=== PATIENT | female | born 1945 | race Caucasian/White ===

== ENCOUNTER → 2017-08-31 14:23 | Outpatient (CLI) | payer OTHER, SELFPAY ==
--- NOTE | 2017-08-31 14:30 | RAD_ITS ---
STUDY: X-RAY - PELVIS REASON FOR EXAM: Female, 71 years old. Pain TECHNIQUE: One view of the pelvis was obtained. COMPARISON: None. FINDINGS: There is no evidence of fracture or dislocation. There are mild degenerative changes in the hips. There are no radiodense foreign bodies. RAD/Pelvis 1 or 2 Views IMPRESSION: No fracture or dislocation. 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 Electronically Signed: Jozef Rao, at 17:05 EDT Tel , Service support ,
[2017-08-31 15:51] LABS: Absolute Lymphocyte Count 2.09 X10^3/ul (0.83-4.51); Absolute Neutrophil Count 5.2 X10^3/uL (2.0-7.7); Basophil# 0.08 X10^3/uL; Basophil% 0.9 % (0-1); Eosinophil# 0.25 X10^3/uL; Eosinophils% 2.9 % (0-5); Hematocrit 36.1 % (37-47); Hemoglobin 11.5 g/dl (12.0-15.0); Lymphocyte # 2.09 X10^3/ul (4.0); Lymphocyte % 23.9 % (19-41); Mean Corp Hgb Conc 31.9 g/gl (32-36); Mean Corpuscular Hgb 27.8 pg (27.0-32.0); Mean Corpuscular Volume 87.4 fL (81-99); Monocyte# 0.97 X10^3/uL; Monocyte% 11.1 % (0-10); Neutrophil # 5.23 X10^3/uL (2.7-7.7); Neutrophil % 59.9 % (47-70); Platelet Count 364 K/mm3 (150-450); RBC Distribution Width CV 16.1 % (11.6-14.6); RBC Distribution Width SD 51.3 fl (35.1-43.9); Red Blood Count 4.13 M/mm3 (4.2-5.4); White Blood Count 8.7 K/mm3 (4.4-11.0)
[2017-08-31 15:56] LABS: POSITIVE COUNT NO; POSITIVE DIFFERENTIAL NO; POSITIVE MORPHOLOGY NO
[2017-08-31 16:08] LABS: Erythrocyte Sedimentation Rate 30 mm/hr (0-30)
[2017-08-31 18:08] LABS: ALB/GLOB Ratio 0.8 RATIO (0.9-2.4); AST(SGOT) 25 U/L (15-37); Alanine Aminotransfer ALT/SGPT 34 U/L (13-56); Albumin, Serum 3.4 g/dL (3.2-5.0); Alkaline Phosphatase 53 U/L (45-117); Anion Gap 9 (5-15); BUN 36 mg/dL (7-18); BUN/Creat Ratio 28.6 RATIO (10-20); CRP 5.25 mg/L (0.0-3.0); Calcium,Total 9.5 mg/dL (8.5-10.1); Chloride 104 mmol/L (98-107); Creatinine, Serum 1.26 mg/dL (0.55-1.02); EST Glomerular Filtration Rate 44 mL/min (>60); Est Glom Filt Rate - Afr Amer 54 mL/min (>60); Globulin 4.4 g/dL (2.2-4.2); Glucose 99 mg/dL (74-106); Protein, Total 7.8 g/dL (6.4-8.2); Rheumatoid Factor < 10.0 IU/mL (<15); Sodium Level 139 mmol/L (136-145)
[2017-09-02 14:07] LABS: SJOGREN'S Anti-SS-A test < 0.2 AI (0.0-0.9); SJOGREN'S Anti-SS-B test < 0.2 AI (0.0-0.9)
[2017-09-03 09:22] LABS: ANTINUCLEAR ANTIBODIES DIRECT Negative (Negative)
[2017-09-08 17:05] LABS: HEPATITIS B SURFACE AG Negative (Negative); Hep B Surface Antibodies Non Reactive (.)
[2017-09-08 17:06] LABS: CCP IgG Antibodies 3 units (0-19); HLA B27 Negative (.); Hep C Antibodies 0.1 s/co ratio (0.0-0.9)
== END ==
PROVIDERS: Family Provider Family Medicine; PCP Family Medicine; Visit Provider Internal Medicine Rheumatology
DX: M06.4 Inflammatory polyarthropathy (principal); I10 Essential (primary) hypertension; Z85.820 Personal history of malignant melanoma of skin
CPT/HCPCS: 36415; 72170; 80053; 81374; 85025; 85652; 86038; 86140; 86200; 86235; 86431; 86706; 86803; 87340

== ENCOUNTER → 2017-11-09 15:30 | Outpatient (CLI) | payer OTHER, SELFPAY ==
[2017-11-09 17:46] LABS: AST(SGOT) 16 U/L (15-37); Alanine Aminotransfer ALT/SGPT 28 U/L (13-56); Albumin, Serum 3.7 g/dL (3.2-5.0); Alkaline Phosphatase 45 U/L (45-117); Anion Gap 7 (5-15); BUN 31 mg/dL (7-18); BUN/Creat Ratio 26.1 RATIO (10-20); Calcium,Total 9.3 mg/dL (8.5-10.1); Chloride 104 mmol/L (98-107); Creatinine, Serum 1.19 mg/dL (0.55-1.02); EST Glomerular Filtration Rate 47 mL/min (>60); Est Glom Filt Rate - Afr Amer 57 mL/min (>60); Globulin 3.6 g/dL (2.2-4.2); Glucose 81 mg/dL (74-106); Potassium 4.1 mmol/L (3.5-5.1); Protein, Total 7.3 g/dL (6.4-8.2); Sodium Level 140 mmol/L (136-145)
[2017-11-09 17:51] LABS: Absolute Lymphocyte Count 1.55 X10^3/ul (0.83-4.51); Absolute Neutrophil Count 6.7 X10^3/uL (2.0-7.7); Basophil# 0.04 X10^3/uL; Basophil% 0.4 % (0-1); Hematocrit 41.1 % (37-47); Hemoglobin 13.2 g/dl (12.0-15.0); Lymphocyte # 1.55 X10^3/ul (4.0); Lymphocyte % 16.2 % (19-41); Mean Corp Hgb Conc 32.1 g/gl (32-36); Mean Corpuscular Hgb 28.7 pg (27.0-32.0); Mean Corpuscular Volume 89.3 fL (81-99); Mean Platelet Vol. 10.9 fl (6.2-12.0); Monocyte# 1.13 X10^3/uL; Monocyte% 11.8 % (0-10); Neutrophil # 6.68 X10^3/uL (2.7-7.7); Neutrophil % 69.8 % (47-70); Platelet Count 299 K/mm3 (150-450); RBC Distribution Width SD 48.9 fl (35.1-43.9); White Blood Count 9.6 K/mm3 (4.4-11.0)
[2017-11-09 17:52] LABS: POSITIVE COUNT NO; POSITIVE DIFFERENTIAL NO; POSITIVE MORPHOLOGY NO
== END ==
PROVIDERS: Family Provider Family Medicine; PCP Family Medicine; Referring Provider Internal Medicine Rheumatology; Visit Provider Internal Medicine Rheumatology
DX: M06.4 Inflammatory polyarthropathy (principal); I10 Essential (primary) hypertension; Z85.820 Personal history of malignant melanoma of skin
CPT/HCPCS: 36415; 80053; 85025

== ENCOUNTER → 2018-01-13 16:25 | Outpatient (CLI) | payer OTHER, SELFPAY ==
[2018-01-13 17:51] LABS: Absolute Lymphocyte Count 2.18 X10^3/ul (0.83-4.51); Absolute Neutrophil Count 5.2 X10^3/uL (2.0-7.7); Basophil# 0.04 X10^3/uL; Basophil% 0.5 % (0-1); Eosinophils% 1.2 % (0-5); Hematocrit 41.2 % (37-47); Hemoglobin 13.1 g/dl (12.0-15.0); Lymphocyte # 2.18 X10^3/ul (4.0); Lymphocyte % 25.6 % (19-41); Mean Corp Hgb Conc 31.8 g/gl (32-36); Mean Corpuscular Hgb 28.4 pg (27.0-32.0); Mean Corpuscular Volume 89.2 fL (81-99); Mean Platelet Vol. 11.5 fl (6.2-12.0); Monocyte# 0.92 X10^3/uL; Monocyte% 10.8 % (0-10); Neutrophil # 5.21 X10^3/uL (2.7-7.7); Neutrophil % 61.3 % (47-70); Platelet Count 279 K/mm3 (150-450); RBC Distribution Width CV 14.9 % (11.6-14.6); RBC Distribution Width SD 48.4 fl (35.1-43.9); Red Blood Count 4.62 M/mm3 (4.2-5.4); White Blood Count 8.5 K/mm3 (4.4-11.0)
[2018-01-13 17:52] LABS: ALB/GLOB Ratio 0.8 RATIO (0.9-2.4); AST(SGOT) 19 U/L (15-37); Alanine Aminotransfer ALT/SGPT 32 U/L (13-56); Albumin, Serum 3.4 g/dL (3.2-5.0); Alkaline Phosphatase 48 U/L (45-117); Anion Gap 8 (5-15); BUN 38 mg/dL (7-18); BUN/Creat Ratio 30.2 RATIO (10-20); Calcium,Total 9.4 mg/dL (8.5-10.1); Chloride 104 mmol/L (98-107); Creatinine, Serum 1.26 mg/dL (0.55-1.02); EST Glomerular Filtration Rate 44 mL/min (>60); Est Glom Filt Rate - Afr Amer 54 mL/min (>60); Glucose 103 mg/dL (74-106); Potassium 4.4 mmol/L (3.5-5.1); Protein, Total 7.4 g/dL (6.4-8.2); Sodium Level 140 mmol/L (136-145)
[2018-01-13 18:02] LABS: POSITIVE COUNT NO; POSITIVE DIFFERENTIAL NO; POSITIVE MORPHOLOGY NO
== END ==
PROVIDERS: Family Provider Family Medicine; PCP Family Medicine; Referring Provider Internal Medicine Rheumatology; Visit Provider Internal Medicine Rheumatology
DX: M06.4 Inflammatory polyarthropathy (principal); I10 Essential (primary) hypertension; Z85.820 Personal history of malignant melanoma of skin
CPT/HCPCS: 36415; 80053; 85025

== ENCOUNTER → 2018-01-20 17:58 | Outpatient (CLI) | payer OTHER, SELFPAY ==
[2018-01-20 18:00] LABS: Pathologist Comment May follow
[2018-01-20 18:33] LABS: RBC /Synovial Fluid 0.026 10^6/uL (0); Synovial Fld Mononuclear WBC % 71.3 %; Synovial Fld Polynuclear WBC # 0.073 10^3/ul; Synovial Fld Polynuclear WBC % 28.7 %
[2018-01-20 18:55] LABS: AUTO B FLUID DILUENT BKGD CT WBC <0.1 RBC <0.01 (W<.1,R<.01); CRYSTALS, BODY FLUID See PATH REV; Color / Synovial Fluid Red (Pale Yellow); Source / Synovial Fluid NG; Source- Body Fluid SYNOVIAL
[2018-01-20 18:56] LABS: Appearance /Synovial Fluid Sl Cl (CLEAR)
[2018-01-20 19:47] LABS: Lymph 34 %; Monocyte /Synovial Fluid 24 %; Neutrophil 42 % (0-25)
[2018-01-20 19:48] LABS: Body Fluid QC Type(s) BF1Q.BF2Q
[2018-01-23 13:57] LABS: Pathologist Review Reviewed
--- OUTSIDE RECORDS SUMMARY | 2018-04-26 07:32 | XMS RPT_ITS ---
:1945 Author Organization OHIP Care Team Providers Name Role Phone ILAN AGUILLON Admitting Unavailable ILAN AGUILLON Attending Unavailable ILAN AGUILLON Primary Care Unavailable ILAN AGUILLON Consulting Unavailable PROVIDER, UNKNOWN Consulting Unavailable PROVIDER, UNKNOWN Consulting Unavailable PROVIDER, UNKNOWN Consulting Unavailable ABRIL KELLEY DR Admitting Unavailable ABRIL KELLEY DR Attending Unavailable ABRIL KELLEY DR Primary Care Unavailable ILAN AGUILLON Consulting Unavailable PROVIDER, UNKNOWN Consulting Unavailable PROVIDER, UNKNOWN Consulting Unavailable PROVIDER, UNKNOWN Consulting Unavailable ABRIL KELLEY DR Admitting Unavailable ABRIL KELLEY DR Attending Unavailable ABRIL KELLEY DR Primary Care Unavailable ILAN AGUILLON Consulting Unavailable PROVIDER, UNKNOWN Consulting Unavailable PROVIDER, UNKNOWN Consulting Unavailable PROVIDER, UNKNOWN Consulting Unavailable ABRIL KELLEY DR Admitting Unavailable ABRIL KELLEY DR Attending Unavailable ABRIL KELLEY DR Primary Care Unavailable ILAN AGUILLON Consulting Unavailable PROVIDER, UNKNOWN Consulting Unavailable PROVIDER, UNKNOWN Consulting Unavailable PROVIDER, UNKNOWN Consulting Unavailable Vellanki, Jasmyne Attending Unavailable Pal, Ilan Primary Care Unavailable Vellanki, Jasmyne Referring Unavailable Mychak Alicia Attending Unavailable Mychak, Alicia Referring Unavailable Ilan Aguillon Primary Care Unavailable Vellanki, Jasmyne Attending Unavailable Vellanki, Jasmyne Referring Unavailable Pal, Ilan Primary Care Unavailable Vellanki, Jasmyne Attending Unavailable Vellanki, Jasmyne Referring Unavailable Ilan Aguillon Primary Care Unavailable Vellanki, Jasmyne Attending Unavailable Vellanki, Jasmyne Referring Unavailable Ilan Aguillon Primary Care Unavailable PROBLEMS PROBLEMS DATE TYPE CONDITION / CODE ATTENDING STATUS SOURCE 01/23/2018 Unknown 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[place], Active [place] polyarthropathy / [facility] M06.4(ICD-10) Hospital Repository 01/23/2018 Unknown I10 - Essential V[place]an[place]san, Active [place] (primary) [facility] hypertension / Hospital I10(ICD-10) Repository 01/23/2018 Unknown Z85.820 - Personal [place]an[place]san, Active [place] history of malignant [facility] melanoma of skin / Hospital Z85.820(ICD-10) Repository 07/11/2017 Principle Polyarthritis, ILAN AGUILLON Active [place] Diagnosis unspecified / [facility] M130(ICD-10) Hospital Repository 07/11/2017 Secondary Myalgia / ILAN AGUILLON Active [place] Diagnosis M791(ICD-10) [facility] Repository PROCEDURES PROCEDURES No Procedure Records FoundRESULTS RESULTS ARTERIAL Observed: 02/02/2018 Status: F Source: [place] 12:20 PM [facility] HOSPITAL REPOSITORY [facility] Cardiovascular Services [address] [place] [address] Lower Ext Art Exam w/o Exercis 02/02/18 1002 MR#: [id number] Acct: [id number] Name: MORGAN DINH #: [id number] : 1945 72 From: Asif Aparicio MD Attending Dr: Alicia Tong DPM Status: REG CLI Ordering Dr: Alicia Tong DPLiss Date: 02/02/18 Location: CVS Sex: F C Admitted: Reason For Study: PVD Left Segmental Pressures Left brachial= 149mmHg. Left posterior tibial artery = 163mmHg. Left dorsalis pedis artery = 160mmHg. Left digit = 90 mmHg. The left dorsalis pedis waveforms are triphasic. The left posterior tibial artery waveforms are triphasic. Right Segmental Pressures Right brachial= 142mmHg. Right posterior tibial artery = 156mmHg. Right dorsalis pedis artery = 161mmHg. Right digit = 100 mmHg. The right dorsalis pedis waveforms are triphasic. The right posterior tibial artery waveforms are triphasic. Indices The right ankle brachial index by the dorsalis pedis is 1.1. The right ankle brachial index by the posterior tibial artery is 1.1. The right digital-brachial index is .67. The left ankle brachial index by the dorsalis pedis is 1.1. The left ankle brachial index by the posterior tibial artery is 1.1. The left digital-brachial index is .60. Interpretation Summary Triphasic waveforms are noted at ankle level bilaterally. Resting ankle-brachial indices are normal bilaterally. Digital-brachial indices are mildly diminished bilaterally. Arterial flow appears to be normal to ankle level bilaterally. There appears to be mild impairment of arterial flow at digital level bilaterally. Clinical correlation is advised. Ordering Physician: Alicia Tong Referring Physician: Ilan Aguillon MD Performed By: Nettie Elizalde Nette 02/02/18 1219 Date Asif Aparicio MD CC: ANGELA Tong; Ilan Aguillon MD Date Dictated: 02/02/18 1002 Date Transcribed: 02/02/18 1219 Home Advisor: Signed LOWER EXT/NO JT/W/O Observed: 02/02/2018 Status: F Source: [place] 10:07 AM [facility] REPOSITORY [facility] Imaging Services [address] [place] [address] Lower Ext/No Jt/w/o MR#: [id number] Acct: [id number] Name: MORGAN DINH Rep #: [id number] : 1945 F 72 From: Thiago Dean MD PCP: Ilan Aguillon MD Status: REG CLI Study: Lower Ext/No Jt/w/o Date of Exam: 02/02/18 Exam# [id number] Ordering Dr: Alicia Tong DPM STUDY: MRI LEFT MIDFOOT REASON FOR EXAM: Female, 72 years old. TECHNIQUE: Standardized fat and water weighted pulse sequences were obtained in all 3 orthogonal planes. COMPARISON: None. 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 Normal first tarsometatarsal articulation. Normal Lisfranc ligament. Normal second and third tarsometatarsal articulations. Normal cuboid fourth and cuboid fifth tarsometatarsal articulation. Normal first through fifth metatarsi. Normal tibialis anterior tendon. Normal extensor hallucis longus tendon. Normal extensor digitorum longus tendons. Normal peroneus longus tendon and distal insertion. Normal peroneus brevis tendon and distal insertion. Normal intrinsic muscles of the mid and forefoot region. Normal extensor digitorum brevis muscle. Normal subcutis adipose space. MRI/Lower Ext/No Jt/w/o IMPRESSION: Arthrosis of the talonavicular, subtalar, navicular-cuneiform and cuneiform-metatarsal articulations. No other significant abnormality. Electronically Signed: Thiago Dean MD at 16:52 EST , Service support , CC: ANGELA Tong; Ilan Aguillon MD Home Advisor: Signed SYNOVIAL FLUID RBC, Collected: 01/20/2018 Status: C Source: [place] WBC AND DIFF 5:00 PM [facility] REPOSITORY TYPE CODE TESTS RESULT OUT OF RANGE REFERENCE UNITS LAB L200.5050 0.000-0.000 10 3 uL High SYN Tot 0.[address] Result Comment: This is the Total Number of Nucleated Cell Types in the Body Fluid. LAB L200.5100 0 10 6/uL High SYNOVIAL RBC 0.026 LAB L200.5200 0.000-0.002 10 3uL High SYNOVIAL WBC 0.2540 LAB L200.5260 % SYBF PMN Normal WBC% 28.7 LAB L200.5270 10 3/ul SYBF PMN Normal WBC# 0.073 LAB L200.5280 % SYBF MN Normal WBC% 71.3 LAB L200.5800 PATH Normal COM/SYFL May follow LAB L200.4600 SYNOVIAL Normal SOURCE NG LAB L200.4900 Pale Yellow SYNOVIAL Normal COLOR Red LAB L200.5000 CLEAR SYNOVIAL Normal CLYDE. Sl Cl LAB L200.5300 0-25 % High NEUTROPHIL 42 LAB L200.5400 % LYMPH Normal 34 LAB L200.5500 % MONO Normal 24 Performed By: #### L200.0400, L200.4175 #### [facility] [address] [place], [address] CRYSTALS, BODY FLUID Collected: 01/20/2018 Status: C Source: [place] 5:00 PM [facility] REPOSITORY TYPE CODE TESTS RESULT OUT OF RANGE REFERENCE UNITS LAB L200.4200 Normal See PATH REV CRYSTALS/BF LAB L200.4225 Normal SYNOVIAL SOURCE/BF LAB L200.6020 Normal PATH Reviewed REV Result Comment: Negative for malignant cells. Bloody specimen. Numerous nondescript crystals are noted. Jonatan Mittal M.D. 01/23/18 AMENDED REPORT 01/23/18 1356 PATH REV previously reported as: Will follow Performed By: #### L200.0400, L200.4175 #### [facility] [address] [facility] [place], [address] Observed: 01/20/2018 Status: F Source: [place] CULTURE, BODY FLUID 5:00 PM [facility] REPOSITORY List Antibiotics Last 48 Hours? N List Antibiotics to be Started? N Gram Stain Gram Stain 4+ Red Blood Cells 1+ White Blood Cells No organisms seen Body Fluid Cult No growth in 5 days. Cult, Anaerobic No growth in 5 days. Performed By: #### M100.1300 #### [facility] [address] [facility] [place], [address] COMPREHENSIVE METABOLIC Collected: 01/13/2018 Status: F Source: [place] PROFIL 4:27 PM [facility] REPOSITORY TYPE CODE TESTS RESULT OUT OF RANGE REFERENCE UNITS LAB L501.0100 74-106 mg/dL Normal GLU 103 Result Comment: Fasting Glucose result from 100 to 125 mg/dL suggests IMPAIRED HOMEOSTASIS per A.D.A. criteria. Please note revised GLUCOSE reference range effective 2017. LAB L501.1000 7-18 mg/dL High BUN 38 LAB L501.1100 0.55-1.02 mg/dL High CREAT,SERUM 1.26 Result Comment: The validity of the calculated GFR AND GFRAA in patients over 70 years has not been determined. Clinical correlation is essential. LAB L501.1110 >60 mL/min Low EST GFR 44 Result Comment: Non- GFR Calc LAB L501.1115 >60 mL/min Low EST GFR - AA 54 Result Comment: GFR Calc LAB L501.1300 10-20 RATIO High BUN/CRE 30.2 LAB L501.1500 6.4-8.2 g/dL T Normal PROT 7.4 LAB L501.1800 3.2-5.0 g/dL Normal ALB 3.4 LAB L501.1950 2.2-4.2 g/dL Normal GLOB 4.0 LAB L501.2000 0.9-2.4 RATIO Low A/G 0.8 LAB L501.2200 8.5-10.1 mg/dL CA Normal 9.4 LAB L501.4100 15-37 U/L Normal AST 19 Result Comment: Slight Hemolysis, Result may be falsely increased. LAB L501.4305 45-117 U/L Normal ALK P 48 LAB L501.4405 13-56 U/L Normal ALT 32 LAB L501.4600 0.20-1.00 mg/dL Normal T BILI 0.30 LAB L501.5300 136-145 mmol/L Normal NA 140 LAB L501.5600 3.5-5.1 mmol/L Normal K 4.4 Result Comment: Slight Hemolysis, Result may be falsely increased. LAB L501.5900 98-107 mmol/L Normal CL 104 LAB L501.6100 21.0-32.0 mmol/L Normal CO2 28.0 LAB L501.6200 5-15 Normal 8 GAP Performed By: #### L500.4050 #### [facility] [address] [place], [address] CBC W/DIFF, AUTOMATED Collected: 01/13/2018 Status: F Source: [place] 4:27 PM [facility] REPOSITORY TYPE CODE TESTS RESULT OUT OF RANGE REFERENCE UNITS LAB L100.1000 4.4-11.0 K/mm3 Normal WBC 8.5 LAB L100.1200 4.2-5.4 M/mm3 Normal RBC 4.62 LAB L100.1300 12.0-15.0 g/dl Normal HGB 13.1 LAB L100.1400 37-47 % Normal HCT 41.2 LAB L100.1500 81-99 fL Normal MCV 89.2 LAB L100.1600 27.0-32.0 pg Normal MCH 28.4 LAB L100.1700 32-36 g/gl Low MCHC 31.8 LAB L100.1810 11.6-14.6 % High RDW CV 14.9 LAB L100.1820 35.1-43.9 fl High RDW SD 48.4 LAB L100.1900 150-450 K/mm3 Normal PLT 279 LAB L100.2000 6.2-12.0 fl Normal MPV 11.5 LAB L100.2100 47-70 % Normal NEUT% 61.3 LAB L100.2200 19-41 % Normal LY% 25.6 LAB L100.2300 0-10 % High MONO% 10.8 LAB L100.2400 0-5 % Normal EO% 1.2 LAB L100.2500 0-1 % Normal BASO% 0.5 LAB L100.2550 0.0-0.9 % Normal IM GRAN % 0.600 Result Comment: IG% - Immature Granulocytes (promyelocytes, myelocytes and metamyelocytes) > 1% indicates that a LEFT SHIFT is Present. LAB L100.2620 2.0-7.7 X10 3/uL Normal Absolute Neut 5.2 LAB L100.2720 0.83-4.51 X10 3/ul Normal Absolute Lymph 2.18 Performed By: #### L100.0100 #### [facility] [address] [place], [address] COMPREHENSIVE METABOLIC Collected: 11/09/2017 Status: F Source: [facility] 3:36 PM [facility] REPOSITORY TYPE CODE TESTS RESULT OUT OF RANGE REFERENCE UNITS LAB L501.0100 74-106 mg/dL Normal GLU 81 Result Comment: Please note revised GLUCOSE reference range effective 2017. LAB L501.1000 7-18 mg/dL High BUN 31 LAB L501.1100 0.55-1.02 mg/dL High CREAT,SERUM 1.19 Result Comment: The validity of the calculated GFR AND GFRAA in patients over 70 years has not been determined. Clinical correlation is essential. LAB L501.1110 >60 mL/min Low EST GFR 47 Result Comment: Non- GFR Calc LAB L501.1115 >60 mL/min Low EST GFR - AA 57 Result Comment: GFR Calc LAB L501.1300 10-20 RATIO High BUN/CRE 26.1 LAB L501.1500 6.4-8.2 g/dL T Normal PROT 7.3 LAB L501.1800 3.2-5.0 g/dL Normal ALB 3.7 LAB L501.1950 2.2-4.2 g/dL Normal GLOB 3.6 LAB L501.2000 0.9-2.4 RATIO Normal A/G 1.0 LAB L501.2200 8.5-10.1 mg/dL CA Normal 9.3 LAB L501.4100 15-37 U/L Normal AST 16 LAB L501.4305 45-117 U/L Normal ALK P 45 LAB L501.4405 13-56 U/L Normal ALT 28 LAB L501.4600 0.20-1.00 mg/dL T Normal BILI 0.30 LAB L501.5300 136-145 mmol/L NA Normal 140 LAB L501.5600 3.5-5.1 mmol/L K Normal 4.1 LAB L501.5900 98-107 mmol/L CL Normal 104 LAB L501.6100 21.0-32.0 mmol/L Normal CO2 29.0 LAB L501.6200 5-15 Normal GAP 7 Performed By: #### L500.4050 #### [facility] [address] [place], [address] CBC W/DIFF, AUTOMATED Collected: 11/09/2017 Status: F Source: [place] 3:36 PM [facility] REPOSITORY TYPE CODE TESTS RESULT OUT OF RANGE REFERENCE UNITS LAB L100.1000 4.4-11.0 K/mm3 Normal WBC 9.6 LAB L100.1200 4.2-5.4 M/mm3 Normal RBC 4.60 LAB L100.1300 12.0-15.0 g/dl Normal HGB 13.2 LAB L100.1400 37-47 % Normal HCT 41.1 LAB L100.1500 81-99 fL Normal MCV 89.3 LAB L100.1600 27.0-32.0 pg Normal MCH 28.7 LAB L100.1700 32-36 g/gl Normal MCHC 32.1 LAB L100.1810 11.6-14.6 % High RDW CV 15.0 LAB L100.1820 35.1-43.9 fl High RDW SD 48.9 LAB L100.1900 150-450 K/mm3 Normal PLT 299 LAB L100.2000 6.2-12.0 fl Normal MPV 10.9 LAB L100.2100 47-70 % Normal NEUT% 69.8 LAB L100.2200 19-41 % Low LY% 16.2 LAB L100.2300 0-10 % High MONO% 11.8 LAB L100.2400 0-5 % Normal EO% 1.0 LAB L100.2500 0-1 % Normal BASO% 0.4 LAB L100.2550 0.0-0.9 % Normal IM GRAN % 0.800 Result Comment: IG% - Immature Granulocytes (promyelocytes, myelocytes and metamyelocytes) > 1% indicates that a LEFT SHIFT is Present. LAB L100.2620 2.0-7.7 X10 3/uL Normal Absolute Neut 6.7 LAB L100.2720 0.83-4.51 X10 3/ul Normal Absolute Lymph 1.55 Performed By: #### L100.0100 #### [facility] [address] [place], [place], [address] CBC W/DIFF, AUTOMATED Collected: 08/31/2017 Status: F Source: [place] 2:31 PM [facility] REPOSITORY TYPE CODE TESTS RESULT OUT OF RANGE REFERENCE UNITS LAB L100.1000 4.4-11.0 K/mm3 Normal WBC 8.7 LAB L100.1200 4.2-5.4 M/mm3 Low RBC 4.13 LAB L100.1300 12.0-15.0 g/dl Low HGB 11.5 LAB L100.1400 37-47 % Low HCT 36.1 LAB L100.1500 81-99 fL Normal MCV 87.4 LAB L100.1600 27.0-32.0 pg Normal MCH 27.8 LAB L100.1700 32-36 g/gl Low MCHC 31.9 LAB L100.1810 11.6-14.6 % High RDW CV 16.1 LAB L100.1820 35.1-43.9 fl High RDW SD 51.3 LAB L100.1900 150-450 K/mm3 Normal PLT 364 LAB L100.2000 6.2-12.0 fl Normal MPV 11.0 LAB L100.2100 47-70 % Normal NEUT% 59.9 LAB L100.2200 19-41 % Normal LY% 23.9 LAB L100.2300 0-10 % High MONO% 11.1 LAB L100.2400 0-5 % Normal EO% 2.9 LAB L100.2500 0-1 % Normal BASO% 0.9 LAB L100.2550 0.0-0.9 % High IM GRAN % 1.300 Result Comment: IG% - Immature Granulocytes (promyelocytes, myelocytes and metamyelocytes) > 1% indicates that a LEFT SHIFT is Present. LAB L100.2620 2.0-7.7 X10 3/uL Normal Absolute Neut 5.2 LAB L100.2720 0.83-4.51 X10 3/ul Normal Absolute Lymph 2.09 Performed By: #### L100.0100, L101.9900 #### [facility] [address] [facility] [place], [place], [address] ERYTHROCYTE SED RATE Collected: 08/31/2017 Status: F Source: [place] 2:31 PM [facility] REPOSITORY TYPE CODE TESTS RESULT OUT OF RANGE REFERENCE UNITS LAB L102.0000 0-30 mm/hr Normal SED RATE 30 Performed By: #### L100.0100, L101.9900 #### [facility] [address] [place], [place], [address] COMPREHENSIVE METABOLIC Collected: 08/31/2017 Status: F Source: [facility] 2:31 PM [facility] REPOSITORY TYPE CODE TESTS RESULT OUT OF RANGE REFERENCE UNITS LAB L501.0100 74-106 mg/dL Normal GLU 99 Result Comment: Please note revised GLUCOSE reference range effective 2017. LAB L501.1000 7-18 mg/dL High BUN 36 LAB L501.1100 0.55-1.02 mg/dL High CREAT,SERUM 1.26 Result Comment: The validity of the calculated GFR AND GFRAA in patients over 70 years has not been determined. Clinical correlation is essential. LAB L501.1110 >60 mL/min Low EST GFR 44 Result Comment: Non- GFR Calc LAB L501.1115 >60 mL/min Low EST GFR - AA 54 Result Comment: GFR Calc LAB L501.1300 10-20 RATIO High BUN/CRE 28.6 LAB L501.1500 6.4-8.2 g/dL T Normal PROT 7.8 LAB L501.1800 3.2-5.0 g/dL Normal ALB 3.4 LAB L501.1950 2.2-4.2 g/dL High GLOB 4.4 LAB L501.2000 0.9-2.4 RATIO Low A/G 0.8 LAB L501.2200 8.5-10.1 mg/dL CA Normal 9.5 LAB L501.4100 15-37 U/L Normal AST 25 Result Comment: Slight Hemolysis, Result may be falsely increased. LAB L501.4305 45-117 U/L Normal ALK P 53 LAB L501.4405 13-56 U/L Normal ALT 34 LAB L501.4600 0.20-1.00 mg/dL Normal T BILI 0.30 LAB L501.5300 136-145 mmol/L Normal NA 139 LAB L501.5600 3.5-5.1 mmol/L Normal K 4.0 Result Comment: Slight Hemolysis, Result may be falsely increased. LAB L501.5900 98-107 mmol/L Normal CL 104 LAB L501.6100 21.0-32.0 mmol/L Normal CO2 26.0 LAB L501.6200 5-15 Normal 9 GAP Performed By: #### L500.4050, L501.6710, L505.7010 #### [facility] [address] [facility]. [facility] [address] CRP Collected: 08/31/2017 Status: F Source: [place] 2:31 [facility] REPOSITORY TYPE CODE TESTS RESULT OUT OF RANGE REFERENCE UNITS LAB L501.6710 0.0-3.0 mg/L High 5.25 C-REACTIVE PROT Result Comment: C-Reactive Protein (CRP) provides useful information for the diagnosis, therapy and monitoring of inflammatory processes and associated diseases. For the evaluation of Relative Risk for Cardiovascular Disease, a High Sensitivity CRP (HSCRP) should be ordered. Performed By: #### L500.4050, L501.6710, L505.7010 #### [facility] [address] [facility] [place], [place], [id number] RHEUMATOID FACTOR Collected: 08/31/2017 Status: F Source: [place] 2:31 PM [facility] REPOSITORY TYPE CODE TESTS RESULT OUT OF RANGE REFERENCE UNITS LAB L505.7010 <15 IU/mL Normal RHEUMATOID FAC < 10.0 Performed By: #### L500.4050, L501.6710, L505.7010 #### [facility] [address] [facility] [place], [address] ANTINUCLEAR ANTIBODIES Collected: 08/31/2017 Status: F Source: [place] DIRECT 2:31 PM [facility] REPOSITORY TYPE CODE TESTS RESULT OUT OF RANGE REFERENCE UNITS LAB L3100.5475 Negative Normal Negative SULAIMAN-DIRECT Result Comment: Performed at: [address] [id number] Rubberizing Mechanic: Armando Truner PhD, Phone: [phone] Performed By: #### L3100.5475, L3100.9100 #### [facility] (refer to report for specific site) refer to report for address and phone number SJOGREN'S ANTIBODIES Collected: 08/31/2017 Status: F Source: [place] A/B 2:31 PM [facility] REPOSITORY TYPE CODE TESTS RESULT OUT OF RANGE REFERENCE UNITS LAB L3100.9200 0.0-0.9 AI Normal Anti-SS-A < 0.2 LAB L3100.9300 0.0-0.9 AI Normal Anti-SS-B < 0.2 Performed By: #### L3100.5475, L3100.9100 #### [facility] (refer to report for specific site) refer to report for address and phone number HEPATITIS B SURFACE Collected: 08/31/2017 Status: F Source: [place] AG 2:31 PM [facility] REPOSITORY TYPE CODE TESTS RESULT OUT OF RANGE REFERENCE UNITS LAB L3100.0400 Negative Normal HB Negative SURF AG Result Comment: Performed at: [address] [id number] Rubberizing Mechanic: Armando Turner PhD, Phone: [phone] Performed at: 2 - [address] [id number] Rubberizing Mechanic: Raymon Rodriguez PhD, Phone: [phone] Performed at: - [address] [id number] Rubberizing Mechanic: Marshall Davila MD, Phone: [phone] Performed By: #### L3100.0390, L3100.0528, L3100.0625, L3410.1400, L4600.0100 #### [facility] (refer to report for specific site) refer to report for address and phone number HEP B SURFACE Collected: 08/31/2017 Status: F Source: [place] ANTIBODIES 2:31 PM [facility] REPOSITORY TYPE CODE TESTS RESULT OUT OF RANGE REFERENCE UNITS LAB L3100.0528 . Normal Hep B Non Reactive Patrick AB Result Comment: Non Reactive: Inconsistent with immunity, less than 10 mIU/mL Reactive: Consistent with immunity, greater than 9.9 mIU/mL Performed By: #### L3100.0390, L3100.0528, L3100.0625, L3410.1400, L4600.0100 #### [facility] (refer to report for specific site) refer to report for address and phone number HEPATITIS C ANTIBODIES Collected: 08/31/2017 Status: F Source: [place] 2:31 PM [facility] REPOSITORY TYPE CODE TESTS RESULT OUT OF RANGE REFERENCE UNITS LAB L3100.0650 0.0-0.9 s/co ratio Normal HEP C AB 0.1 Result Comment: Negative: < 0.8 Indeterminate: 0.8 - 0.9 Positive: > 0.9 The CDC recommends that a positive HCV antibody result be followed up with a HCV Nucleic Acid Amplification test (500127). Performed By: #### L3100.0390, L3100.0528, L3100.0625, L3410.1400, L4600.0100 #### [facility] (refer to report for specific site) refer to report for address and phone number HLA B27 Collected: 08/31/2017 Status: F Source: [place] 2:31 PM [facility] REPOSITORY TYPE CODE TESTS RESULT OUT OF RANGE REFERENCE UNITS LAB L3410.1500 . Normal HLA Negative B27 Result Comment: HLA-B*27 Negative B27 allele interpretation for all loci based on IMGT/HLA database version 3.27 This test was developed and its performance characteristics determined by [facility]. It has not been cleared or approved by the Food and Drug Administration. [facility] CLIA ID Number [id number] This test was performed using PCR (Polymerase Chain Reaction)/SSOP (Sequence Specific Oligonucleotide Probes) technique. SBT (Sequence Based Typing) and/or SSP (Sequence Specific Primers) may be used as supplemental methods when necessary. Please contact [facility] Customer Service at if you have any questions. Director of [facility] Laboratory Dr Raymon Rodriguez, PhD Performed By: #### L3100.0390, L3100.0528, L3100.0625, L3410.1400, L4600.0100 #### [facility] (refer to report for specific site) refer to report for address and phone number CCP IGG ANTIBODIES Collected: 08/31/2017 Status: F Source: [place] 2:31 PM [facility] REPOSITORY TYPE CODE TESTS RESULT OUT OF RANGE REFERENCE UNITS LAB L4600.0100 0-19 units Normal ANTI-CCP 3 [id number] Result Comment: Negative <20 Weak positive 20 - 39 Moderate positive 40 - 59 Strong positive >59 Performed By: #### L3100.0390, L3100.0528, L3100.0625, L3410.1400, L4600.0100 #### [facility] (refer to report for specific site) refer to report for address and phone number PELVIS 1 OR 2 VIEWS Observed: 08/31/2017 Status: F Source: [place] 2:30 PM [facility] REPOSITORY [facility] Imaging Services [address] [place] [address] Pelvis 1 or 2 Views MR#: [id number] Acct: [id number] Name: MORGAN DINH Rep #: [id number] : 1945 F 71 From: Jozef Rao MD PCP: Ilan Aguillon Status: REG CLI Study: Pelvis 1 or 2 Views Date of Exam: 08/31/17 Exam# [id number] Ordering Dr: Jasmyne Galan MD STUDY: X-RAY - PELVIS REASON FOR EXAM: Female, 71 years old. Pain TECHNIQUE: One view of the pelvis was obtained. COMPARISON: None. FINDINGS: There is no evidence of fracture or dislocation. There are mild degenerative changes in the hips. There are no radiodense foreign bodies. RAD/Pelvis 1 or 2 Views IMPRESSION: No fracture or dislocation. 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 Electronically Signed: Jozef Rao, at 17:05 EDT Tel , Service support , CC: Jasmyne Galan MD; Ilan Aguillon Home Advisor: Signed MR SHOULDER W/O RT Observed: 07/21/2017 Status: F [facility] [place] [address] Patient: MORGAN DINH Phone#: : [phone] Age: 71 Gender: F Pt. Type: Out Account: [id number] Location: [facility] Ordering: ABRIL KELLEY Exam Date: 07/21/2017/17:29 Family Phys: ILAN AGUILLON Charge Code: [id number] Physician: Roberts Order #: [id number] DLP Dose#: PROCEDURE: MRI SHOULDER RT WITHOUT CONTRAST COMPARISON: None. INDICATIONS: Pain and limited range of motion TECHNIQUE: A variety of imaging planes and parameters were utilized for visualization of suspected pathology. Images were performed without contrast. FINDINGS: ROTATOR CUFF REGION CUFF TENDONS: The supraspinatus tendon is abnormal in signal and thickened consistent with tendinosis. There is also a focus of bright signal at the articular attachment consistent with tear. The subscapularis tendon is thickened and mildly abnormal in signal consistent with tendinosis. CUFF MUSCLES: Normal appearing muscles. DELTOID: Normal. No significant atrophy or tear. LONG BICEPS TENDON: No abnormal signal, attrition, or tear. There is fluid present in the tendon sheath. LABRUM/BICEPS ANCHOR SUPERIOR: There is degeneration of the superior labrum. ANTERIOR/INFERIOR: There is degeneration of the anterior/inferior labrum. POSTERIOR: Normal. No posterior labrum abnormality. CAPSULE ANTERIOR/INFERIOR: Normal. No visible capsular laxity or thickening. Type I origin of the middle glenohumeral ligament. POSTERIOR: Normal. No visible capsular laxity or thickening. AC JOINT REGION AC JOINT: Degenerative changes are present at the acromioclavicular joint. AC LIGAMENTS: Normal acromioclavicular ligament. CC LIGAMENTS: Normal coracoclavicular ligaments. ACROMION: Normal horizontal (Type I) configuration. SUBACROMIAL BURSA: A small amount of fluid is present in the subacromial bursa. Continued Report - Page 2 of 2 Patient: MORGAN DINH Phone#: : 1945 Age: 71 Gender: F Pt. Type: Out Account: [id number] Location: 052 Ordering: ABRIL KELLEY Exam Date: 07/21/2017/17:29 Family Phys: ILAN AGUILLON Charge Code: 462986 Physician: Roberts Order #: [id number] DLP Dose#: HYALINE CARTILAGE: There is thinning of the articular cartilage. There is narrowing of the anterior glenohumeral joint. OTHER BONES: There is narrowing of the glenohumeral joint. OTHER OBSERVATIONS: A 7 mm focus of diminished signal is present lateral to the humeral head consistent with bursal calcification. CONCLUSION: 1. Degeneration of the articular cartilage is present. There is narrowing of the anterior glenohumeral joint space. There is degeneration of the superior and anterior labrum. 2. There is thickening and abnormal signal in the supraspinatus tendon consistent with tendinosis. There is small articular surface attachment tear. 3. There is tendinosis of the subscapularis tendon. 4. Degenerative changes at the acromioclavicular joint are present. Dictated by: Raquel Carr MD on 07/22/2017 at 16:09 Approved by: Raquel Carr MD on 07/22/2017 at 16:09 CBC Collected: 07/11/2017 Status: F Source: [facility] 3:02 PM [facility] REPOSITORY TYPE CODE TESTS RESULT OUT OF RANGE REFERENCE UNITS LAB CBC(LOINC) CBC Result Comment: CBC-COMPLETE BLOOD COUNT LAB WBC(LOINC) 4.5 - 10.8 x 10EE3/UL WBC 9.0 LAB RBC(LOINC) 4.10 - x 10EE6/UL 5.30 RBC 4.55 LAB HEMOGLOBIN(LOINC 12.0 - g/dl ) 16.0 HEMOGLOBIN 12.9 LAB HEMATOCRIT(LOINC 34.0 - % ) 46.0 HEMATOCRIT 36.7 LAB MCV(LOINC) 80 - 99 fl MCV 81 LAB MCH(LOINC) 27 - 33 pg MCH 28 LAB MCHC(LOINC) 32 - 36 X10 3 MCHC 35 LAB RDW/CV(LOINC) 12.0 - % 15.6 RDW/CV High 15.7 LAB PLATELET(LOINC) 150 - 450 x10EE3/UL PLATELET 376 LAB MPV(LOINC) 6.6 - 10.5 fl MPV 9.7 Result Comment: AUTOMATED DIFFERENTIAL LAB NEUT %(LOINC) 46.0 - 76.0 % NEUT % 60.2 LAB LYMPH %(LOINC) 20.0 - 45.0 % LYMPH % 25.4 LAB MONOS %(LOINC) 0.0 - 10.0 % MONOS % 9.0 LAB EO %(LOINC) 0.0 - 7.0 % EO % 4.2 LAB BASO %(LOINC) 0.0 - 2.0 % BASO % 1.2 LAB Lymph #(LOINC) 0.80 - 2.80 x10EE3/U L Lymph # 2.30 LAB Neut #(LOINC) 1.50 - 7.10 x10EE3/U L Neut # 5.40 LAB [place] #(LOINC) 0.20 - 1.00 x10EE3/U L [place] # 0.80 LAB EO #(LOINC) 0.00 - 0.50 x10EE3/U L EO # 0.40 LAB Baso #(LOINC) 0.00 - 0.10 x10EE3/U L Baso # 0.10 LAB MANUAL DIFF(LOINC) MANUAL DIFF N/A LAB MORPHOLOGY(LOINC ) MORPHOLOGY N/A Result Comment: {CD] Performed By: #### [id number] #### [facility],[address] [place] [address] VITAMIN D, 25 Collected: 07/11/2017 Status: F Source: [facility] 3:02 PM [facility] REPOSITORY TYPE CODE TESTS RESULT OUT OF RANGE REFERENCE UNITS LAB VitD(LOINC) 30.00 - 100 ng/mL VitD 34.21 Result Comment: 25-OHD3 indicates both endogenous production and supplementation. 25-OHD2 is an indicator of exogenous sources, such as diet or supplementation. Therapy is based on measurement of Total 25-OHD, with levels <20 ng/mL indicative of Vitamin D deficiency, while levels between 20 ng/mL and 30 ng/mL suggest insufficiency. Optimal levels are >=30ng/mL. Vitamin D, 25-OH D3 Not Established Vitamin D, 25-OH D2 Not Established Performed By: #### [id number] #### [facility],[address] [place] [address]87 CMP WITH EGFR Collected: 07/11/2017 Status: F Source: [facility] 3:02 PM [facility] REPOSITORY TYPE CODE TESTS RESULT OUT OF RANGE REFERENCE UNITS LAB CMP with eGFR(LOINC) CMP with eGFR Result Comment: COMPREHENSIVE METABOLIC PANEL LAB SODIUM(LOINC) 136 - 145 mmol/l SODIUM Low 134 LAB POTASSIUM(LOINC) 3.5 - 5.1 mmol/L POTASSIUM 4.3 LAB CHLORIDE(LOINC) 98 - 107 mmol/L CHLORIDE 107 LAB CO2(LOINC) 21.0 - mmol/L 31.0 CO2 25.5 LAB GLUCOSE(LOINC) 74 - 106 mg/dl GLUCOSE 89 LAB BUN(LOINC) 6 - 20 mg/dl BUN High 32 LAB CREATININE(LOINC) 0.6 - 1.2 mg/dl CREATININE 1.1 LAB AST/SGOT(LOINC) 13 - 39 U/L AST/SGOT 19 LAB ALK PHOS(LOINC) 38 - 126 U/L ALK PHOS 89 LAB CALCIUM(LOINC) 8.6 - mg/dl 10.2 CALCIUM 9.8 LAB TOTAL 6.4 - 8.3 g/dl PROTEIN(LOINC) TOTAL PROTEIN 7.1 LAB ALBUMIN(LOINC) 3.4 - 4.8 g/dL ALBUMIN 4.2 LAB GLOBULIN(LOINC) 1.5 - 3.8 G/DL GLOBULIN 2.9 LAB A/G RATIO(LOINC) 0.9 - 1.6 A/G RATIO 1.4 LAB TOTAL BILI(LOINC) 0.0 - 1.5 mg/dl TOTAL BILI 0.6 LAB B/C RATIO(LOINC) 0 - 30 ratio B/C RATIO 29 LAB ALT/SGPT(LOINC) 8 - 35 U/L ALT/SGPT 24 LAB ANION GAP(LOINC) 10 - 20 mmol/L ANION Low GAP 6 LAB AGE(LOINC) years AGE 71 LAB eGFR(LOINC) 60 - 999 ML/MINUTE eGFR Low 49 LAB eGFR(AA)(LOINC) 60 - 999 ML/MINUTE eGFR(AA) Low 59 Result Comment: ACCORDING TO THE NATIONAL KIDNEY DISEASE EDUCATION PROGRAM(NKDE), A NORMAL eGFR IS A VALUE GREATER THAN OR EQUAL TO 60 ML/MIN/1.73 SQ METERS. CHRONIC KIDNEY DISEASE: <60mL/MIN/1.73 SQ METERS KIDNEY FAILURE: <15mL/MIN/1.73 SQ METERS THIS TEST SHOULD ONLY BE USED FOR PATIENTS 18 YEARS OF AGE AND OLDER. Performed By: #### [id number] #### [facility],[address] [place] [address] TSH Collected: 07/11/2017 Status: F Source: [facility] 3:02 PM [facility] REPOSITORY TYPE CODE TESTS RESULT OUT OF RANGE REFERENCE UNITS LAB TSH(LOINC) 0.34 - 5.60 uIU/ml TSH 1.60 Performed By: #### [id number] #### [facility],[address] [place] [address] SEDRATE Collected: 07/11/2017 Status: F Source: [facility] 3:02 PM [facility] REPOSITORY TYPE CODE TESTS RESULT OUT OF REFERENCE UNITS RANGE LAB SEDRATE(RHETT 0 - 30 mm/hr NC) High SEDRATE 55 Performed By: #### [id number] #### [facility],[address] [place] [address] RHEUMATOID FACTOR Collected: 07/11/2017 Status: F Source: [facility] [QUEST] 3:02 [facility] REPOSITORY TYPE CODE TESTS RESULT OUT OF REFERENCE UNITS RANGE LAB RHEUMATOID FACTOR [QUEST](LOINC) RHEUMATOID FACTOR [QUEST] Result Comment: _RHEUMATOID FACTOR_ RHEUMATOID FACTOR Reported: 07/14/2017 21:37 Status=F TEST RESULT FLAG RANGE UNITS RHEUMATOID FACTOR <14 <14 IU/mL 07/14/17.2150.rfl.COMPLETE.AMRR .57357-2 Test Performed by [facility], [facility], [address] [place] [address] Richard Gage M.D., Ph.D., Director of Laboratories , CLIA [id number] Performed By: #### [id number] #### [facility],[address] [place], [place] [address] SULAIMAN TITER & PATTERN Collected: 07/11/2017 Status: F Source: [facility] [[facility]] 3:02 PM [facility] REPOSITORY TYPE CODE TESTS RESULT OUT OF REFERENCE UNITS RANGE LAB SULAIMAN TITER & PATTERN [QUEST](LOINC ) SULAIMAN TITER & PATTERN [QUEST] Result Comment: _ANA TITER AND PATTERN_ *SEE SEPARATE REPORT* TESTING PERFORMED AT: [facility] [address] [place] [address] [employer] PHONE # [phone] Performed By: #### [id number] #### [facility],[address] [place], [place] [id number] ALLERGIES ALLERGIES DATE TYPE / CODE NAME / CODE REACTION SEVERITY SOURCE 01/18/2016 Drug No Known Unknown [facility] Allergy/4160 Allergies/F00 [facility] [address]655(SNOMED 3399615(RXNOR Repository CT) M) Drug AVELOX/172061 Moderate Darriusjory Velasquezcalliut Allergy/4160 96(RXNORM) (Severity [facility] 66436(SNOMED Modifier) Repository CT) (Qualifier Value) ENCOUNTERS ENCOUNTERS ADMIT/DISCHARGE ACCOUNT ADMITTING ENCOUNTER LOCATION SOURCE NUMBER CLASS 02/03/2018 [id number] Tre KELLEY [facility] Repository 02/02/2018 [id number] Ambulatory [place] Anupam 9 [facility] ing:[facility] Repository 01/20/2018 [id number] Ambulatory Anupam [place] 1 [facility] ing:[facility]SPEC Repository 01/13/2018 [id number] [place] 2 [facility] ing:MTLAB Repository 11/09/2017 [id number] Ambulatory [place] Anupam 4 [facility] ing:LAB Repository 08/31/2017 [id number] Ambulatory [place] Anupam 5 [facility] ing:MTLAB Repository 07/29/2017/ [id number] KELLEY, Ambulatory Darrius Pomerene 8 [facility] Repository 07/21/2017/ [id number] KELLEY, Ambulatory Darrius Pomerene 8 [facility] Repository 07/11/2017/ [id number] PALILAN Ambulatory Darrius Pomerene [address] [place] [address] Repository PAYERS PAYERS ENCOUNTER GUARANTOR PAYER SUBSCRIBER SOURCE 02/03/2018 MORGAN Primary MORGAN Carballo Darrius Arciniegasam ROSALESDOB: Insurance:AULTCARE ROSALESDOB: [facility] [id number] [facility] [id number] [facility] [address] Number: [address], [place] [id number] [place], [place] [address]Jfh: 330 Date:Plan Name:A2 [id number] [phone] () 02/02/2018 MORGAN L Primary MORGAN L Anupam [id number] TR Insurance:AULTCAREPoli ROSALESDOB: [address] Number: [id number] Service Unit [id number]: [id number] Repository Date:1454-28-69DY [address] () [place] [address]XR: 02/02/2018 Secondary NOT GIVENUNK [place] Insurance:SELF PAY [facility] Number: Effective Repository Date:2018-01-04 01/20/2018 MORGAN L Primary MORGAN L Anupam [id number] TR Insurance:AULTCAREPoli ROSALESDOB: [address] [facility] Number: [id number] Service Unit [id number]: [id number] [facility] Date:2433-86-40BA [address] () [address] [address]CX: 01/20/2018 Secondary NOT GIVENUNK Anupam Insurance:SELF PAY [facility] Number: Effective Repository Date:2018-01-20 01/13/2018 MORGAN L Primary MORGAN L [place] [id number] TR Insurance:AULTCAREPoli ROSALESDOB: [address], [place] Number: [id number] Service Unit [id number]: [id number] Repository Date:1154-41-28AW [address] () [address] [address]IZ: 01/13/2018 Secondary NOT GIVENUNK Anupam Insurance:SELF PAY [facility] Number: Effective Repository Date:2018-01-13 11/09/2017 Morgan L Primary Morgan L Anupam [id number] TR Insurance:AULTCAREPoli RosalesDOB: [address] Number: [id number] Service Unit [id number]: [id number] Repository Date:4298-85-14CP [address] () [address] [address]XG: 11/09/2017 Secondary NOT GIVENUNK [place] Insurance:SELF PAY [facility] Number: Effective Repository Date:2017-11-09 08/31/2017 Morgan L Primary Morgan L Anupam [id number] TR Insurance:AULTCAREPoli RosalesDOB: [address], [place] Number: [id number] Service Unit [id number]: [id number] Repository Date:5174-43-81SS [address]OX () [address], [place] [address]NZ: 08/31/2017 Secondary NOT GIVENUNK [place] Insurance:SELF PAY [facility] Number: Effective Repository Date:2017-08-31 07/29/2017 MORGAN Primary MORGAN L Darrius Sharp ROSALESDOB: Insurance:AULTCARE ROSALESDOB: [facility] [id number] [facility] [address] Number: [address] Repository [place] [id number] [place], [place] [address]Mcu: (330) Date:Plan Name:A2 [id number] [phone] () 07/21/2017 MORGAN Primary MORGAN L Darrius Sharp ROSALESDOB: Insurance:AUCARE ROSALESDOB: [facility] [id number] [facility] [address] Number: [address] Repository [place] [id number] [place], [place] [address]Een: (330) Date:Plan Name:A2 [id number] [phone] () 07/11/2017 MORGAN Primary MORGAN ROSALESDOB: Darrius Sharp ROSALESDOB: [facility] [id number] [facility] cy Number: 5 [facility] [id number] [address] [place], [place] Repository [address] [place], Date:9612-60-95Wkez [address] [place] [address]Bmg: Name:ALEXANDREA ()
== END ==
PROVIDERS: Family Provider Family Medicine; PCP Family Medicine; Referring Provider Internal Medicine Rheumatology; Visit Provider Internal Medicine Rheumatology
DX: M06.4 Inflammatory polyarthropathy (principal); I10 Essential (primary) hypertension; Z85.820 Personal history of malignant melanoma of skin
CPT/HCPCS: 87070; 87075; 87205; 89050; 89051; 89060

== ENCOUNTER → 2018-02-02 09:53 | Outpatient (CLI) | payer OTHER, SELFPAY ==
--- NOTE | 2018-02-02 10:00 | ART_ITS ---
Reason For Study: PVD Left Segmental Pressures Left brachial= 149mmHg. Left posterior tibial artery = 163mmHg. Left dorsalis pedis artery = 160mmHg. Left digit = 90 mmHg. The left dorsalis pedis waveforms are triphasic. The left posterior tibial artery waveforms are triphasic. Right Segmental Pressures Right brachial= 142mmHg. Right posterior tibial artery = 156mmHg. Right dorsalis pedis artery = 161mmHg. Right digit = 100 mmHg. The right dorsalis pedis waveforms are triphasic. The right posterior tibial artery waveforms are triphasic. Indices The right ankle brachial index by the dorsalis pedis is 1.1. The right ankle brachial index by the posterior tibial artery is 1.1. The right digital-brachial index is .67. The left ankle brachial index by the dorsalis pedis is 1.1. The left ankle brachial index by the posterior tibial artery is 1.1. The left digital-brachial index is .60. Interpretation Summary Triphasic waveforms are noted at ankle level bilaterally. Resting ankle-brachial indices are normal bilaterally. Digital-brachial indices are mildly diminished bilaterally. Arterial flow appears to be normal to ankle level bilaterally. There appears to be mild impairment of arterial flow at digital level bilaterally. Clinical correlation is advised. Ordering Physician: Alicia Tong Referring Physician: Ilan Aguillon MD Performed By: Nettie Elizalde RVT
--- NOTE | 2018-02-02 10:07 | MRI_ITS ---
STUDY: MRI LEFT MIDFOOT REASON FOR EXAM: Female, 72 years old. TECHNIQUE: Standardized fat and water weighted pulse sequences were obtained in all 3 orthogonal planes. COMPARISON: None. 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 Normal first tarsometatarsal articulation. Normal Lisfranc ligament. Normal second and third tarsometatarsal articulations. Normal cuboid fourth and cuboid fifth tarsometatarsal articulation. Normal first through fifth metatarsi. Normal tibialis anterior tendon. Normal extensor hallucis longus tendon. Normal extensor digitorum longus tendons. Normal peroneus longus tendon and distal insertion. Normal peroneus brevis tendon and distal insertion. Normal intrinsic muscles of the mid and forefoot region. Normal extensor digitorum brevis muscle. Normal subcutis adipose space. MRI/Lower Ext/No Jt/w/o IMPRESSION: Arthrosis of the talonavicular, subtalar, navicular-cuneiform and cuneiform-metatarsal articulations. No other significant abnormality. Electronically Signed: Thiago Dean MD at 16:52 EST , Service support ,
== END ==
PROVIDERS: Family Provider Family Medicine; PCP Family Medicine; Referring Provider Podiatrist Foot & Ankle Surgery; Visit Provider Podiatrist Foot & Ankle Surgery
DX: I73.9 Peripheral vascular disease, unspecified (principal); M79.672 Pain in left foot
CPT/HCPCS: 73718; 93923

== ENCOUNTER → 2018-04-25 15:09 | Outpatient (CLI) | payer OTHER, SELFPAY ==
[2016-01-18 08:52] VITALS: BMI 29.0
[2018-04-25 17:34] LABS: Absolute Lymphocyte Count 1.86 X10^3/ul (0.83-4.51); Absolute Neutrophil Count 7.5 X10^3/uL (2.0-7.7); Basophil# 0.05 X10^3/uL; Basophil% 0.5 % (0-1); Eosinophil# 0.07 X10^3/uL; Eosinophils% 0.7 % (0-5); Hematocrit 40.3 % (37-47); Hemoglobin 12.4 g/dl (12.0-15.0); Lymphocyte # 1.86 X10^3/ul (4.0); Lymphocyte % 17.7 % (19-41); Mean Corp Hgb Conc 30.8 g/gl (32-36); Mean Corpuscular Hgb 28.7 pg (27.0-32.0); Mean Corpuscular Volume 93.3 fL (81-99); Mean Platelet Vol. 11.4 fl (6.2-12.0); Monocyte# 0.94 X10^3/uL; Monocyte% 8.9 % (0-10); Neutrophil % 71.2 % (47-70); Platelet Count 308 K/mm3 (150-450); RBC Distribution Width CV 15.1 % (11.6-14.6); RBC Distribution Width SD 50.2 fl (35.1-43.9); Red Blood Count 4.32 M/mm3 (4.2-5.4); White Blood Count 10.5 K/mm3 (4.4-11.0)
[2018-04-25 17:48] LABS: ALB/GLOB Ratio 0.9 RATIO (0.9-2.4); AST(SGOT) 24 U/L (15-37); Alanine Aminotransfer ALT/SGPT 35 U/L (13-56); Albumin, Serum 3.5 g/dL (3.2-5.0); Alkaline Phosphatase 67 U/L (45-117); Anion Gap 9 (5-15); BUN 36 mg/dL (7-18); BUN/Creat Ratio 36.1 RATIO (10-20); Chloride 101 mmol/L (98-107); EST Glomerular Filtration Rate 58 mL/min (>60); Est Glom Filt Rate - Afr Amer 70 mL/min (>60); Glucose 104 mg/dL (74-106); Potassium 4.4 mmol/L (3.5-5.1); Protein, Total 7.5 g/dL (6.4-8.2); Sodium Level 137 mmol/L (136-145)
[2018-04-25 17:57] LABS: POSITIVE COUNT NO; POSITIVE DIFFERENTIAL NO; POSITIVE MORPHOLOGY NO
== END ==
PROVIDERS: Family Provider Family Medicine; PCP Family Medicine; Referring Provider Internal Medicine Rheumatology; Visit Provider Internal Medicine Rheumatology
DX: M06.4 Inflammatory polyarthropathy (principal); I10 Essential (primary) hypertension; Z85.820 Personal history of malignant melanoma of skin
CPT/HCPCS: 36415; 80053; 85025

== ENCOUNTER → 2019-03-05 15:17 | Outpatient (CLI) | payer OTHER, SELFPAY ==
--- NOTE | 2019-03-05 15:21 | US_ITS ---
STUDY: RENAL ULTRASOUND - COMPLETE REASON FOR EXAM: Female, 73 years old. CKD 3 TECHNIQUE: Ultrasound evaluation of the kidneys was performed with real-time and static bush-scale imaging. COMPARISON: None. FINDINGS: RIGHT KIDNEY: Normal location of the right kidney, which is normal in size. The right kidney measures 10.3 cm. There is a normal cortex of the right kidney. The renal cortex measures 1.0 cm. There is no right renal mass or cyst. Small hyperechoic foci throughout the renal parenchyma suggesting nonobstructing stones. There is no right hydronephrosis. DISTAL RIGHT URETER: There is non-visualization of the distal right ureter. There is no demonstrated right ureterovesical junction calculus. There is a visualized right ureteral jet. LEFT KIDNEY: Normal location of the left kidney, which is normal in size. The left kidney measures 10.7 cm. There is a normal cortex of the left kidney. The renal cortex measures 1.2 cm. There is no left renal mass or cyst. Multiple echogenic foci within the renal parenchyma suggesting small nonobstructing stones. There is no left hydronephrosis. DISTAL LEFT URETER: There is non-visualization of the distal left ureter. There is no demonstrated left ureterovesical junction calculus. There is a visualized left ureteral jet. BLADDER: The distended urinary bladder has a volume of 378 ml. There is a normal wall thickness of the distended urinary bladder. There is no demonstrated mass within the urinary bladder. There are no demonstrated bladder calculi. US/Kidney and Bladder IMPRESSION: Echogenic foci in the kidneys suggesting small nonobstructing stones. Otherwise, unremarkable appearance of the kidneys. Bilateral ureteral jets are identified. Unremarkable bladder. Electronically Signed: Nahid Gregg DO at 12:55 EST Tel , Service support ,
== END ==
PROVIDERS: Family Provider Family Medicine; PCP Family Medicine; Referring Provider Internal Medicine; Visit Provider Internal Medicine
DX: N18.3 Chronic kidney disease, stage 3 (moderate) (principal)
CPT/HCPCS: 76770

== ENCOUNTER → 2019-07-26 07:55 | Outpatient (CLI) | payer OTHER, SELFPAY ==
[2019-07-18 10:08] VITALS: BMI 29.0
[2019-07-26] VITALS (13 sets, daily range): BP systolic 92–156; BP diastolic 37–84; PULSE 53–76; RESP 10–19; TEMP 36.5; O2SAT 94–100; BMI 32.0
--- NOTE | 2019-07-26 | ASPIGT_PTH ---
PATIENT: MORGAN DINH LOC: [place] U#:[id number] AGE/SX: 79/F ROOM: RE07/26/[address]: Dr. Papi Montoya MD : 1945 BED: DIS: SPEC #: [id number] RECD: 07/26/19 11:01 STATUS: PATIENCE WADE #: [id number] TAMARA: 07/26/19 00:[address]: Papi Montoya DEPT: SURGICAL PATHOLOGY RECD BY: Shan Steve ENTERED: 07/26/19 11:01 SP TYPE: ASP RAD OTHR DR: Dr. Ilan Aguillon MD Tissues: Lung, NOS Procedures: FNA Specimen Adequacy Special Stain Group II Surgery Specimen Level IV Imprint (control) HEADER OPERATION: CT-guided right lung biopsy PRE-OP DIAGNOSIS: RUL lung nodule TISSUE SUBMITTED: RUL lung nodule, CT-guided core biopsy, 20 gauge core x4 MICROSCOPIC DIAGNOSIS Right upper lobe lung nodule, CT-guided core biopsy: Non-small cell carcinoma, favor squamous cell carcinoma. See comment. SJ:nabor 07/27/19 COMMENT The specimen is evaluated at the time of biopsy by Dr. Mittal. Immediate Evaluation = Malignant cells present derived from non-small cell carcinoma. Immunohistochemistry ([id number]) supports the above diagnosis. Molecular studies on the tumor can be performed if clinically indicated. Please notify the laboratory, if they are needed. Case has been reviewed in consultation with Dr. Townsend who concurs with the above diagnosis. IDC:AM MICROSCOPIC DESCRIPTION Slides are reviewed. GROSS DESCRIPTION Received in fixative is one container labeled with the patient's name and designated right upper lobe of lung nodule, CT-guided core biopsy. The specimen consists of multiple minute fragments of light pink-munoz soft tissue that in aggregate measure 0.8 x 0.1 x <0.1 cm. The specimen is totally submitted in one cassette. Two touch imprints are prepared at the time of core biopsy. / AM:nabor 07/26/19 TC:0 CPT: 66454, 04175
--- NOTE | 2019-07-26 | IMM_PTH ---
PATIENT: MORGAN DINH LOC: CT U#:[id number] AGE/SX: 79/F ROOM: RE07/26/[address]: Dr. Papi Montoya MD : 1945 BED: DIS: SPEC #: [id number] RECD: 07/27/19 11:23 STATUS: PATIENCE REQ #: [id number] TAMARA: 07/26/19 00:[address]: Papi Montoya DEPT: IMMUNOHISTOCHEMISTRY RECD BY: Gretchen Thakkar ENTERED: 07/27/19 11:25 SP TYPE: IMMUNO OTHR DR: Dr. Ilan Aguillon MD Tissues: Lung, NOS Procedures: Synapto (add) RCC (add) NAPSIN A (add) CD56 (add) CHROMO (add) CK20 (add) CK5-6 (add) CK7 (add) CK8 (add) HEP PAR (add) RI (add) TTF1 (add) P40 (add) ER (initial) PHYSICIAN & INSTITUTION [address] [address] SPECIMEN INFORMATION: Tissue Source: CT-guided core biopsy, right upper lobe lung nodule Clinical Info: Right upper lobe lung nodule Specimen Number: [id number] CPT code: 38353, 72436 x13 METHODOLOGY: Deparaffinized sections of prefer/formalin-fixed tissue or PAP/DQ stained slides are incubated with monoclonal/polyclonal antibodies/oligonucleotide probes. Localization is made via biotin free immunoperoxidase method. Appropriate controls are performed and reacted as expected. Results on target cell population are indicated in the following table: RESULTS: ANTIBODY / CLONE RESULT ER (6F11) negative RI (1E2) negative CK7 (OV-TL12/30) positive CK8 (80vnbbV52) positive CK20 (KS20.8) positive, focal, rare cells CD56 (123C3.D5) negative Chromo (LK2H10) negative Synapto (polyclonal) negative TTF-1 (8G7G3/1) negative Napsin A (Rabbit Polyclonal) negative HepPar (OCh1E5) negative RCC (PN-15) negative CK5-6 (D5 & 1684) positive P40 (BC28) positive These tests were developed and their performance characteristics determined by [facility]. They may not have been cleared or approved by the U.S. Food and Drug Administration. The FDA has determined that such clearance or approval is not necessary. The above immunohistochemical/dualISH markers are ordered and reviewed by the Pathologist. INTERPRETATION: Right upper lobe lung nodule, CT-guided core biopsy: Non-small cell carcinoma, favor squamous cell carcinoma. SJ:nabor 07/30/19 Case has been reviewed in consultation with Dr. Townsend who concurs with the above diagnosis. IDC:SONIA
--- NOTE | 2019-07-26 07:58 | CT_ITS ---
PROCEDURE: CT GUIDED CORE NEEDLE BIOPSY OF A right upper lobe LUNG LESION INDICATION: Female, 73 years old. RT upper lobe LUNG BX PHYSICIAN: Dr. Pedicelli. Nicole CONSENT: Written informed consent was obtained having explained the risks, benefits and alternatives in detail with the patient who accepted the risks and agreed to proceed. Laboratory review and clinical assessment was performed. CONSCIOUS SEDATION PROTOCOL: The Drugs used were: 2 mg Versed, IV., and 100 mcg Fentanyl, IV. The sedation time was: 23 minutes. Conscious sedation was started at 9:09 AM and terminated at 9:32 AM The conscious sedation protocol was independently monitored. RADIATION DOSAGE (If Supplied By Facility): CTDIvol = ( 16.6 ) mGy, DLP = ( 588.25 ) mGycm Individualized dose optimization techniques were used for this CT. TECHNIQUE: The patient was placed in the supine position. A noncontrast CT was performed to localize the lesion in the peripheral aspect of the right upper lobe . The skin surface was prepped and draped in a sterile fashion. 1% lidocaine was used for local anesthesia. Using CT guidance, a 20-gauge coaxial biopsy device was advanced to the periphery of the lesion. A total of 4 core specimens were obtained. The specimens were placed in a formalin solution. A post procedure CT demonstrated no adverse sequelae or pneumothorax. The patient tolerated the procedure well without adverse event. A negative biopsy does not exclude malignancy. Further imaging or clinical followup based on patient condition and degree of clinical suspicion for malignancy. Suggest rebiopsy, if biopsy results do not match with clinical scenario. CT/Biopsy/Inj or Needle Placement IMPRESSION: 1. CT directed core needle biopsy of the right upper lobe lung nodule using CT image guidance with image documentation as described. Pathology results are pending. 2. Conscious Sedation protocol utilized with independent monitoring. Electronically Signed: Kristopher Grace, at 10:03 EDT , Service support ,
[2019-07-26 08:14] LABS: Platelet Count 261 K/mm3 (150-450)
[2019-07-26 08:24] LABS: Prothrombin Time (Protime)PT. 12.4 SECONDS (11.7-14.9)
[2019-07-26 08:25] LABS: Partial Thromboplast Time 35.8 Seconds (24.1-36.2)
[2019-07-26] MEDS: Midazolam 2 MG/2 ML Syringe IV (09:09)
[2019-07-26] MEDS: fentaNYL 100 MCG/2 ML Ampul IV ×2 (09:11→09:31)
--- NOTE | 2019-07-26 09:40 | RAD_ITS ---
STUDY: X-RAY CHEST REASON FOR EXAM: Female, 73 years old. POST LUNG BX, NO CHEST COMPLAINTS PER PT TECHNIQUE: AP inspiration and expiration views. COMPARISON: Comparison is made with prior study dated May 06, 2010. FINDINGS: Immediate post right upper lobe lung biopsy. No evidence of pneumothorax.. RAD/Chest Insp/Exp 2 View IMPRESSION: No evidence of pneumothorax on the immediate post right upper lobe lung biopsy radiograph. Electronically Signed: Kristopher Grace, at 9:58 EDT , Service support ,
--- NOTE | 2019-07-26 11:45 | RAD_ITS ---
STUDY: X-RAY CHEST REASON FOR EXAM: Female, 73 years old. 2 HOURS POST LUNG BIOPSY TECHNIQUE: AP inspiration and expiration views. COMPARISON: Comparison is made with prior study done earlier in the day. FINDINGS: EKG electrodes are seen. No evidence of a right pneumothorax on the delayed postright lung biopsy radiographs. RAD/Chest Insp/Exp 2 View IMPRESSION: No evidence of pneumothorax. Electronically Signed: Kristopher Grace, at 12:14 EDT , Service support ,
== END ==
PROVIDERS: PCP Family Medicine; Referring Provider Internal Medicine Critical Care Medicine; Visit Provider Internal Medicine Critical Care Medicine
DX: C34.11 Malignant neoplasm of upper lobe, right bronchus or lung (principal); R91.1 Solitary pulmonary nodule
CPT/HCPCS: 32405; 36415; 71046; 77012; 85049; 85610; 85730; 88172; 88305; 88313; 88341; 88342; 99156; 99157; J7040; A4216

== ENCOUNTER → 2019-08-10 07:57 | Outpatient (CLI) | payer OTHER, SELFPAY ==
[2019-07-18 10:08] VITALS: BMI 29.0
[2019-07-31 13:04] VITALS: BMI 32.0
--- NOTE | 2019-08-11 08:30 | PFT ---
INTRODUCTION: The patient is a 73-year-old female that presents for pulmonary function studies secondary to a diagnosis of lung mass. Respiratory therapy reports good patient effort. Bronchodilators were used during testing. INTERPRETATION: Forced expiration spirometry demonstrates the presence of a mild large airways obstructive ventilatory defect. There was no significant response to aerosolized bronchodilators. Spirograms are of good quality and do not plateau indicating slow emptying of the lungs. Body plethysmography was performed and reveals an elevated RV indicative of underlying air trapping. Diffusing capacity by single breath CO is within normal limits. IMPRESSION: Irreversible mild large airways obstructive ventilatory defect with associated air trapping and preserved diffusing capacity.
== END ==
PROVIDERS: PCP Family Medicine; Referring Provider Internal Medicine Critical Care Medicine; Visit Provider Internal Medicine Critical Care Medicine
DX: R91.8 Other nonspecific abnormal finding of lung field (principal)
CPT/HCPCS: 94060; 94726; 94729

== ENCOUNTER → 2019-08-17 11:59 | Outpatient (CLI) | payer OTHER, SELFPAY ==
[2019-08-13 14:10] VITALS: BMI 31.9
--- NOTE | 2019-08-17 11:59 | MRI_ITS ---
STUDY: MRI BRAIN WITH AND WITHOUT CONTRAST REASON FOR EXAM: Female, 73 years old. Lung CA staging TECHNIQUE: Standardized multiplanar fat and water weighted pulse sequences were obtained. 15ml Dotarem via IV was administered for the contrast portion of the examination. COMPARISON: CT of the chest dated July 26, 2019 FINDINGS: There is mild cerebral atrophy with widening of the extra-axial spaces and ventricular dilatation. There are a limited number of small white matter hyperintensities, distributed throughout the deep white matter tracts of the cerebral hemispheres, consistent with mild chronic white matter ischemic changes. There is no evidence for recent intracranial ischemia or other cause of cytotoxic edema on diffusion weighted imaging (DWI). Normal bilateral basal ganglia. Normal thalami. There is no extra-axial fluid accumulation. Normal flow voids within the major intracranial circulation suggesting patency by spin echo criteria. Normal venous enhancement. There is no enhancing intra-axial or extra-axial abnormality. No demonstrated abnormal meningeal or dural or parenchymal enhancement. No visualized lesions. Normal sella turcica, pituitary gland, infundibular stalk, optic chiasm and hypothalamus. Normal tectal plate and pineal gland. Normal midbrain, indira and medulla. Normal cerebellum. Normal basal cisterns. Normal bilateral temporal bones. Normal bilateral internal auditory canals. No demonstrated orbital abnormality, within the constraints of a routine brain study. Normal visualized paranasal sinuses. Normal calvarium and skull base. Normal visualized soft tissue structures. Normal visualized upper cervical spine. MRI/Brain W/WO Contrast IMPRESSION: 1. Mild chronic ischemic and involutional changes of the brain, as described above. 2. No demonstrated abnormal meningeal or dural or parenchymal enhancement. No visualized lesions. Electronically Signed: Ramsey Rao MD at 14:46 EDT , Service support ,
== END ==
PROVIDERS: PCP Family Medicine; Referring Provider Internal Medicine Medical Oncology; Visit Provider Internal Medicine Medical Oncology
DX: C34.11 Malignant neoplasm of upper lobe, right bronchus or lung (principal)
CPT/HCPCS: 70553; A9575

== ENCOUNTER → 2019-08-21 14:55 | Outpatient (CLI) | payer OTHER, SELFPAY ==
[2019-08-13 14:10] VITALS: BMI 31.9
--- NOTE | 2019-08-21 14:55 | ECHOCS_ITS ---
Reason For Study: Pre Chemo Procedure This was a 2D Doppler, Color Flow transthoracic echocardiogram. The study was technically difficult. Contrast injection was performed. No Strain analysis due to needed use of Definity. Patient was uncooperative for testing. Exam performed in department. Left Ventricle Normal LV size. Left ventricular systolic function is normal. The estimated ejection fraction is 70 %. Diastolic function is indeterminate. No regional wall motion abnormalities noted. Right Ventricle Normal RV size. Normal systolic function. Atria Normal left atrium. Normal right atrium. No doppler evidence for ASD. Mitral Valve There is mild mitral annular calcification. Extension of the mitral annular calcification onto the base of the posterior mitral valve leaflet. Trivial mitral valve insufficiency. Tricuspid Valve Normal tricuspid valve. Mild tricuspid valve insufficiency. Unable to estimate RV systolic pressure/pulmonary artery pressure due to technically difficult study. Aortic Valve Trisinus/trileaflet aortic valve. Mild diffuse aortic valve calcification. Pulmonic Valve The pulmonic valve is not well visualized. Great Vessels The aortic root is not well visualized. Pericardium/Pleural No pericardial effusion. Medication 22 gauge I.V. with prn adaptor inserted into left arm. Diluted definity 2ml given slow IV push to enhance endocardial definition. MMode/2D Measurements & Calculations LVIDd: 3.6 cm IVSd: 1.3 cm LA dimension: 3.8 cm LVIDs: 1.8 cm LVPWd: 1.3 cm FS: 48.9 % LAV(MOD-bp): 40.3 ml LA A4 area: 13.4 cm2 RA A4 area: 11.4 cm2 LAV(MOD-bp) Indexed: 22.3 ml/m2 LAV(MOD-sp2): 45.1 ml LAV(MOD-sp4): 31.9 ml Time Measurements MV dec time: 0.23 sec Doppler Measurements & Calculations MV E max savage: 50.1 cm/sec Lat Peak E' Savage: 5.4 cm/sec Med Peak E' Savage: 4.7 cm/sec MV A max savage: 92.7 cm/sec E/E' lat: 9.4 E/E' med: 10.6 MV E/A: 0.54 MV V2 max: 110.7 cm/sec MV P1/2t max savage: 82.8 cm/sec Ao V2 max: 128.1 cm/sec MV max P.9 mmHg MV P1/2t: 79.3 msec Ao max P.6 mmHg MV V2 mean: 59.8 cm/sec MV dec slope: 305.8 cm/sec2 MV mean P.7 mmHg MV V2 VTI: 21.4 cm MVA(P1/2t): 2.8 cm2 LV V1 max: 110.0 cm/sec PA V2 max: 84.7 cm/sec LV V1 max P.8 mmHg Interpretation Summary The study was technically difficult. Contrast injection was performed. Left ventricular systolic function is normal. The estimated ejection fraction is 70 %. There is mild mitral annular calcification. Extension of the mitral annular calcification onto the base of the posterior mitral valve leaflet. Trivial mitral valve insufficiency. Mild tricuspid valve insufficiency. Mild diffuse aortic valve calcification. Unable to estimate RV systolic pressure/pulmonary artery pressure due to technically difficult study. Diastolic function is indeterminate. Ordering Physician: Xavier Whaley Referring Physician: Xavier Whaley Performed By: Eduardo Rachel RCS
--- NOTE | 2019-08-21 17:00 | PET_ITS ---
EXAMINATION: FDG PET CT INDICATIONS: A 73-year-old female with history of carcinoma of the lung presenting for initial staging examination. COMPARISON EXAMINATION: CT of the chest biopsy report dated 07/26/19. INDEX LESION SIZE SUV INTERPRETATION Right upper lateral lung-right upper lobe 21.5 mm (frame 204) 5.5 Fulfills quantitative criteria for viable neoplasm NON-INDEX LESION SIZE SUV INTERPRETATION Proximal ascending colon nodular 29.8 mm (frame 97) 3.4 Most consistent with physiologic tracer distribution, correlation with CT of the abdomen and pelvis with oral and intravenous contrast may be of benefit TECHNIQUE: Following the intravenous administration of 13.8 mCi of F-18 deoxyglucose via the left antecubital fossa, multiplanar image acquisitions of the neck, chest, abdomen and pelvis to level of mid thigh, obtained at one hour post radiopharmaceutical administration contemporaneously interpreted with the current CT of the neck, chest, abdomen and pelvis to level of mid thigh, dated 08/21/[address] of the chest biopsy report dated 07/26/19 reveal: SERUM GLUCOSE LEVEL: 95 mg/dl. HEIGHT: 62 inches. WEIGHT: 175 lbs. FINDINGS: 1. Focal increased glucose metabolism is demonstrated in the right upper lateral lung field-right upper lobe generating a calculated maximum standard uptake value of 5.5. The maximal axial diameter of the corresponding noncalcified parenchymal density on review of CT of the chest dated 08/21/19 is 21.5 mm (AP). 2. There is focal increased fluorine-labeled glucose uptake manifest in the right upper pelvic mesentery contiguous to the distribution of the proximal ascending colon, nodular in presentation, registering a calculated maximum standard uptake value of 3.4. The maximal axial diameter of the corresponding metabolic abnormality on review of CT of the pelvis dated 08/21/19 is 29.8 mm (AP). 3. Normal physiologic distribution of the radiopharmaceutical is apparent in the hepatic (3.3) and splenic parenchyma, both renal units, bladder and visualized intestinal tract. There is uniform distribution of the radiopharmaceutical concentration defined in the visualized cerebellar hemispheres and cerebral cortical structures. Diffuse intestinal tract activity is noted throughout all four quadrants of the abdominal-pelvic retroperitoneum and mesentery consistent with normal physiologic distribution of the radiopharmaceutical. Pertinent CT findings are as follows. CHEST: Atherosclerotic calcification is defined in the thoracic aorta without evidence of dilatation, aneurysm formation. Coronary arterial calcification is observed. Bilateral axillary soft tissue densities with fatty hilus are non-glucose avid. Scattered subcentimeter mediastinal soft tissue reveals no evidence of increased tracer uptake. There are no additional parenchymal densities-nodules defined in the right and left hemithorax demonstrating discernible, quantitatively significant enhanced FDG uptake. ABDOMEN AND PELVIS: Atherosclerotic calcification is defined in the abdominal aorta without evidence of dilatation, aneurysm formation. Pelvic arterial calcification is observed. Right and left inguinal soft tissue densities with fatty hilus are ametabolic. A fat-containing left inguinal hernia is noted. SKELETAL: Diffuse demineralization is demonstrated. Degenerative changes defined in the cervical, thoracic and lumbar spine demonstrate no evidence of glucose hypermetabolism. PET/PET/CT Tumor Base -Thigh Init IMPRESSION: 1. ABNORMAL EXAMINATION INDICATIVE OF MALIGNANT-VIABLE NEOPLASM. 2. Increased glucose concentration observed in the right upper lateral lung field-right upper lobe fulfills quantitative criteria for viable neoplasm. (Gaspar et al, Annals of Internal Medicine, 138:724, 2003). 3. Enhanced tracer uptake defined in the proximal ascending colon is most consistent with physiologic tracer distribution. If intraluminal soft tissue mass formation is a diagnostic consideration, correlation with CT of the abdomen and pelvis with oral and intravenous contrast is recommended. (Dobert et al, Journal of Nuclear Medicine, 30:S276, 2003). 4. No other definitive quantitatively significant metabolic abnormalities are identified. There is no scintigraphic evidence of distant metastatic disease. Electronic Signature Chip Burris D.O. Accurate Quantification of SUVs for this report are calculated using the exclusive [employer] - is now [employer]. Exclusive [place]. Patent [employer]? Technology ([place].S. Patent No. [phone]). Electronically Signed: Chip Burris DO at 22:29 EDT Tel , Service support ,
== END ==
PROVIDERS: PCP Family Medicine; Referring Provider Internal Medicine Medical Oncology; Visit Provider Internal Medicine Medical Oncology
DX: Z01.818 Encounter for other preprocedural examination (principal); C34.11 Malignant neoplasm of upper lobe, right bronchus or lung; I13.0 Hypertensive heart and chronic kidney disease with heart failure and stage 1 through stage 4 chronic kidney disease, or unspecified chronic kidney disease; N18.9 Chronic kidney disease, unspecified
CPT/HCPCS: 78815; 93306; A9552; Q9957; A4216; C8929

== ENCOUNTER 2019-11-08 08:57 | Outpatient (RCR) | payer OTHER, SELFPAY ==
[2019-10-30 09:11] VITALS: BMI 30.4
== END 2019-12-08 23:59 ==
LOC: WC 08:57
PROVIDERS: PCP Family Medicine; Referring Provider Nurse Practitioner Acute Care; Visit Provider Internal Medicine
DX: Z00.00 Encounter for general adult medical examination without abnormal findings (principal)

== ENCOUNTER → 2020-01-07 06:45 | Outpatient (CLI) | payer OTHER, SELFPAY ==
[2019-10-08 15:09] VITALS: BMI 31.0
[2019-10-30 09:11] VITALS: BMI 30.4
--- NOTE | 2020-01-07 06:48 | CT_ITS ---
STUDY: CT CHEST WITH CONTRAST REASON FOR EXAM: Female, 74 years old. MONITORING LUNG CANCER, SURG ONLY, RT UPPER LOBE LOBECTOMY, HTN, LT SHOULDER REPLACEMENT RADIATION DOSAGE (If Supplied By Facility): CTDIvol = ( 19.89 ) mGy, DLP = ( 496.36 ) mGycm TECHNIQUE: Transaxial imaging was performed following intravenous administration of . Multiplanar coronal and sagittal images were reformatted. Individualized dose optimization techniques were used for this CT. COMPARISON: None. FINDINGS: Mild scarring is seen along the posterior aspect of the lingular segment of the left upper lobe. Mild degree of hydrocephalus changes more prominent in the upper lobes. Mild scarring at the lung bases. There are calcifications of the coronary arteries. There are multiple small lymph nodes within the mediastinum, which are normal in size and morphology most compatible with reactive lymph hyperplasia. Normal hilar regions. Normal enhanced pulmonary arteries. There is atherosclerotic calcification of the aortic arch with tortuosity and elongation of the aortic arch and descending thoracic aorta. There are multi-level degenerative changes of the thoracic spine. Demineralization of the mid dorsal vertebrae with mild wedging. There is no demonstrated abnormality of the visualized upper abdomen. CT/Chest WITH Contrast IMPRESSION: Hyperinflation and emphysematous changes. Mild scarring as described. No mass lesion is seen. Electronically Signed: Kristopher Grace, at 13:22 EST , Service support ,
[2020-01-07 07:33] LABS: Absolute Lymphocyte Count 1.77 X10^3/uL (0.83-4.51); Absolute Neutrophil Count 5.3 X10^3/uL (2.0-7.7); Basophil# 0.09 X10^3/uL; Eosinophil# 0.68 X10^3/uL; Eosinophils% 7.8 % (0-5); Hematocrit 40.6 % (37-47); Hemoglobin 13.2 g/dL (12.0-15.0); Lymphocyte # 1.77 X10^3/ul (4.0); Lymphocyte % 20.3 % (19-41); Mean Corp Hgb Conc 32.5 g/dL (32-36); Mean Corpuscular Hgb 28.6 pg (27.0-32.0); Mean Corpuscular Volume 88.1 fL (81-99); Mean Platelet Vol. 10.7 fl (6.2-12.0); Monocyte# 0.89 X10^3/uL; Monocyte% 10.2 % (0-10); NRBC Flagged by Analyzer 0 % (0-5); Neutrophil # 5.26 X10^3/uL (2.7-7.7); Neutrophil % 60.4 % (47-70); Platelet Count 302 K/mm3 (150-450); RBC Distribution Width CV 14.6 % (11.6-14.6); RBC Distribution Width SD 46.7 fl (35.1-43.9); Red Blood Count 4.61 M/mm3 (4.2-5.4); White Blood Count 8.7 K/mm3 (4.4-11.0)
[2020-01-07 07:58] LABS: ALB/GLOB Ratio 0.9 RATIO (0.9-2.4); Albumin, Serum 3.5 g/dL (3.2-5.0); Alkaline Phosphatase 76 U/L (45-117); Anion Gap 7 (5-15); BUN 24 mg/dL (7-18); BUN/Creat Ratio 22.4 RATIO (10-20); Calcium,Total 9.1 mg/dL (8.5-10.1); Chloride 105 mmol/L (98-107); Creatinine, Serum 1.07 mg/dL (0.55-1.02); EST Glomerular Filtration Rate 53 mL/min (>60); Est Glom Filt Rate - Afr Amer 64 mL/min (>60); Glucose 125 mg/dL (74-106); LDH 237 U/L (84-246); Potassium 3.9 mmol/L (3.5-5.1); Protein, Total 7.5 g/dL (6.4-8.2); Sodium Level 138 mmol/L (136-145)
[2020-01-07 08:17] LABS: AST(SGOT) 39 U/L (15-37); Alanine Aminotransfer ALT/SGPT 62 U/L (13-56)
== END ==
PROVIDERS: PCP Family Medicine; Referring Provider Internal Medicine Medical Oncology; Visit Provider Internal Medicine Medical Oncology
DX: C34.91 Malignant neoplasm of unspecified part of right bronchus or lung (principal)
CPT/HCPCS: 36415; 71260; 80053; 83615; 85025; Q9967

== ENCOUNTER → 2020-02-20 12:49 | Outpatient (CLI) | payer OTHER, SELFPAY ==
[2020-01-10 15:30] VITALS: BMI 30.4
--- NOTE | 2020-02-22 08:00 | PFT ---
INTRODUCTION: The patient is a 74-year-old female who presents for pulmonary function studies secondary to a diagnosis of squamous cell lung cancer. Respiratory therapy reports good patient effort. Bronchodilators were used during testing. INTERPRETATION: Forced expiration spirometry demonstrates the presence of a mild large airways obstructive ventilatory defect. There was no significant response to aerosolized bronchodilators. Spirograms are of good quality and do not plateau indicating slow emptying of the lungs. Body plethysmography was performed and revealed lung volumes to be within normal limits. Diffusing capacity by single breath CO is reduced at 64% of predicted. When compared to previous pulmonary function studies from August 2019, there has been a 14% reduction in FEV1 along with a 16% reduction in DLCO. IMPRESSION: Irreversible mild large airways obstructive ventilatory defect with preserved lung volumes and symmetric reduction in diffusing capacity. There have been changes noted in the patient's PFTs since August 2019, as noted above.
== END ==
PROVIDERS: PCP Family Medicine; Referring Provider Internal Medicine Critical Care Medicine; Visit Provider Internal Medicine Critical Care Medicine
DX: C34.91 Malignant neoplasm of unspecified part of right bronchus or lung (principal)
CPT/HCPCS: 94060; 94726; 94729

== ENCOUNTER → 2020-07-08 14:45 | Outpatient (CLI) | payer OTHER, SELFPAY ==
[2020-01-10 15:30] VITALS: BMI 30.4
[2020-07-08 15:15] LABS: CREATININE FINGERSTICK 1.3 mg/dL (0.55-1.02)
--- NOTE | 2020-07-08 15:17 | CT_ITS ---
STUDY: CT CHEST WITH CONTRAST REASON FOR EXAM: Female, 74 years old. LUNG CANCER-MONITOR. Status post right upper lobectomy. RADIATION DOSAGE (If Supplied By Facility): CTDIvol = ( 11.88 ) mGy, DLP = ( 388.60 ) mGycm TECHNIQUE: Transaxial imaging was performed following intravenous administration of IV 100mL Isovue-300. Multiplanar coronal and sagittal images were reformatted. Individualized dose optimization techniques were used for this CT. COMPARISON: Comparison is made with prior examination dated 01/07/2020. FINDINGS: The patient is status post right upper lobectomy. Postoperative thickening of the right major fissure. No evidence of mass lesion or consolidation. Stable mild degree of increased markings in the posterior aspect of the lingular segment of the left upper lobe abutting the left major fissure suggestive of scarring. There is no demonstrated pleural abnormality. There are calcifications of the coronary arteries. There are multiple small lymph nodes within the mediastinum, which are normal in size and morphology most compatible with reactive lymph hyperplasia. Normal hilar regions. Normal enhanced pulmonary arteries. Atherosclerotic calcific plaques at the level of the aortic arch. There are degenerative changes of the thoracic spine. There is no demonstrated abnormality of the visualized upper abdomen. CT/Chest WITH Contrast IMPRESSION: Stable examination. No acute abnormality is seen. Electronically Signed: Kristopher Grace MD at 15:36 EDT , Service support ,
== END ==
PROVIDERS: PCP Family Medicine; Referring Provider Internal Medicine Medical Oncology; Visit Provider Internal Medicine Medical Oncology
DX: C34.11 Malignant neoplasm of upper lobe, right bronchus or lung (principal)
CPT/HCPCS: 71260; Q9967

== ENCOUNTER → 2020-08-07 15:29 | Outpatient (CLI) | payer OTHER, SELFPAY ==
[2020-07-16 11:25] VITALS: BMI 29.4
--- NOTE | 2020-08-07 15:43 | MRI_ITS ---
STUDY: MRI RIGHT MIDFOOT REASON FOR EXAM: Female, 74 years old. RT FOOT OSTEOARTHRITIS TECHNIQUE: Standardized fat and water weighted pulse sequences were obtained in all 3 orthogonal planes. COMPARISON: None. FINDINGS: Normal talonavicular articulation. Normal calcaneocuboid articulation. Normal navicular-cuneiform articulations. Normal intercuneiform articulations. There is mild degenerative arthrosis of the first tarsometatarsal articulation. Normal Lisfranc ligament. There is moderate degenerative arthrosis of the second and third tarsometatarsal articulations. Normal cuboid fourth and cuboid fifth tarsometatarsal articulation. Normal first through fifth metatarsi. Stress reaction within the second metatarsal extends through the proximal half of the shaft. Normal tibialis anterior tendon. Normal extensor hallucis longus tendon. Normal extensor digitorum longus tendons. Normal peroneus longus tendon and distal insertion. Normal peroneus brevis tendon and distal insertion. Normal intrinsic muscles of the mid and forefoot region. Normal extensor digitorum brevis muscle. Normal subcutis adipose space. MRI/Lower Ext/No Jt/w/o IMPRESSION: Moderate midfoot arthrosis particularly of the second tarsometatarsal joint. Electronically Signed: Chip Blanc MD at 18:11 EDT Tel , Service support ,
--- NOTE | 2020-08-07 15:44 | MRI_ITS ---
STUDY: MRI LEFT MIDFOOT REASON FOR EXAM: Female, 74 years old. LEFT FOOT, OSTEOARTHRITIS TECHNIQUE: Standardized fat and water weighted pulse sequences were obtained in all 3 orthogonal planes. COMPARISON: None. FINDINGS: Normal talonavicular articulation. Normal calcaneocuboid articulation. There is mild degenerative arthrosis of the navicular-cuneiform articulation. Normal intercuneiform articulations. There is mild degenerative arthrosis of the first tarsometatarsal articulation. Normal Lisfranc ligament. There is moderate degenerative arthrosis of the second and third tarsometatarsal articulations. There is mild degenerative arthrosis of the cuboid fourth and cuboid fifth tarsometatarsal articulations. Normal first through fifth metatarsi. Normal tibialis anterior tendon. Normal extensor hallucis longus tendon. Normal extensor digitorum longus tendons. Normal peroneus longus tendon and distal insertion. Normal peroneus brevis tendon and distal insertion. Normal intrinsic muscles of the mid and forefoot region. Normal extensor digitorum brevis muscle. Normal subcutis adipose space. MRI/Lower Ext/No Jt/w/o IMPRESSION: Moderate midfoot arthrosis particularly of the third tarsometatarsal joint. Electronically Signed: Chip Blanc MD at 18:13 EDT Tel , Service support ,
== END ==
PROVIDERS: PCP Family Medicine; Referring Provider Podiatrist; Visit Provider Podiatrist
DX: M19.071 Primary osteoarthritis, right ankle and foot (principal); M19.072 Primary osteoarthritis, left ankle and foot
CPT/HCPCS: 73718

== ENCOUNTER → 2021-01-27 07:36 | Outpatient (CLI) | payer OTHER, SELFPAY ==
--- NOTE | 2021-01-27 07:39 | CT_ITS ---
STUDY: CT CHEST WITH CONTRAST REASON FOR EXAM: Female, 75 years old. MONITOR-LUNG CANCER RADIATION DOSAGE (If Supplied By Facility): CTDIvol = ( 13.46 ) mGy, DLP = ( 451.71 ) mGycm TECHNIQUE: Transaxial imaging was performed following intravenous administration of IV 100mL Isovue-370. Multiplanar coronal and sagittal images were reformatted. Individualized dose optimization techniques were used for this CT. COMPARISON: Comparison is made with prior study dated 07/08/2020. FINDINGS: Once again, the patient is status post right upper lobectomy with volume loss in the right upper lobe. Mild postoperative thickening of the right major fissure. Stable mild scarring at the lung bases. There is no demonstrated pleural abnormality. There are calcifications of the coronary arteries. Normal mediastinum. Normal hilar regions. Normal enhanced pulmonary arteries. There is atherosclerotic calcification of the aortic arch with tortuosity and elongation of the aortic arch and descending thoracic aorta. There are degenerative changes of the thoracic spine. Increased kyphosis. There is no demonstrated abnormality of the visualized upper abdomen. CT/Chest WITH Contrast IMPRESSION: Stable examination. Electronically Signed: Kristopher Grace MD at 11:56 EST , Service support ,
== END ==
PROVIDERS: PCP Family Medicine; Referring Provider Internal Medicine Medical Oncology; Visit Provider Internal Medicine Medical Oncology
DX: C34.11 Malignant neoplasm of upper lobe, right bronchus or lung (principal)
CPT/HCPCS: 71260; Q9967

== ENCOUNTER → 2021-07-27 | Outpatient (CLI) | payer OTHER, MEDICARE, SELFPAY ==
--- NOTE | 2021-07-27 08:26 | CT_ITS ---
INDICATION: MONITORING LUNG CANCER EXAMINATION: CT CHEST WITH CONTRAST - CT Chest W/ Contrast Injection TECHNIQUE: Helically acquired images were obtained of the chest following IV contrast. A radiation dose optimization technique was used for this scan. IV Contrast dosage and agent: 100 cc ISOVUE-300 COMPARISON: CT chest with contrast from 01/27/2021, 07/08/2020. FINDINGS: Lungs/pleura: The central airways are patent. Stable mild emphysematous changes. Status post right upper lobe lobectomy with associated volume loss and scarring no recurrent mass lesion. Stable 6 mm right middle lobe nodule. The remainder of the lungs are clear with no focal consolidations or suspicious masses. No pleural effusion or pneumothorax. Mediastinum: Heart size is normal. No pericardial effusion. No masses or lymphadenopathy. Vasculature: Arterial atherosclerotic disease and atheromatous plaque throughout the aorta. Normal course of the aorta. Coronary artery calcifications. Normal course and caliber of the pulmonary arteries. Bones/soft tissues: Stable chronic T8 vertebral body compression deformity. Increased kyphotic curvature. Multilevel degenerative changes of the thoracolumbar spine. No acute findings. No destructive osseous lesions. Left shoulder total arthroplasty postoperative changes are partially visualized. Soft tissues are unremarkable. Visualized upper abdomen: Unremarkable. CT/Chest WITH Contrast IMPRESSION: 1. Stable exam with no recurrent or metastatic disease. 2. Stable 6 mm right middle lobe nodule. Electronically Signed: Stevo Caal, at 15:46 EDT ,
[2021-07-27 08:40] LABS: CREATININE FINGERSTICK < 0.9 mg/dL (0.55-1.02); EGFR FINGERSTICK > 60.0000 mL/min (>60)
== END | disposition home or self-care (01) ==
LOC: CT 08:16
PROVIDERS: PCP Family Medicine; Referring Provider Internal Medicine Medical Oncology; Visit Provider Internal Medicine Medical Oncology
DX: C34.90 Malignant neoplasm of unspecified part of unspecified bronchus or lung (principal)
CPT/HCPCS: 71260; Q9967

== ENCOUNTER → 2022-07-27 | Outpatient (CLI) | payer MEDICARE, SELFPAY ==
[2022-07-27 13:11] LABS: CREATININE FINGERSTICK 2.1 mg/dL (0.55-1.02)
--- NOTE | 2022-07-27 13:15 | CT_ITS ---
INDICATION: Lung cancer surveillance EXAMINATION: CT CHEST WITHOUT CONTRAST - CT Chest W/O Contrast Injection TECHNIQUE: Helically acquired images were obtained of the chest. A radiation dose optimization technique was used for this scan. IV Contrast dosage and agent: None. RADIATION DOSAGE (If Supplied By Facility): CTDIvol = ( 10.32 ) mGy, DLP = ( 340.52 ) mGycm COMPARISON: FINDINGS: LUNGS, PLEURA AND LARGE AIRWAYS: 4 mm peripheral right lower lobe nodule. Left lower lobe granulomatous calcification. No masses, consolidation, or edema. No pleural effusion or thickening. No pneumothorax. THYROID: 8 mm right thyroid hypoattenuated nodule. HEART AND PERICARDIUM: Heart size is normal. No pericardial effusion. CORONARY ARTERIES: Coronary artery calcifications are noted. VESSELS: Calcified thoracic aorta. MEDIASTINUM AND MAHOGANY: No mediastinal or hilar adenopathy. Esophagus is unremarkable. No hiatal hernia. UPPER ABDOMEN: No acute pathology. BONES: There is a left shoulder prosthesis. Degenerative vertebral changes. Mild wedge compression of the T8 segment. Scoliosis. CT/Chest without Contrast IMPRESSION: Right lower lobe nodule likely granulomatous in nature.. Left lower lobe pulmonary granulomatous calcification. Right thyroid nodule. Electronically Signed: José Antonio Ochoa DO at 17:51 EDT ,
== END | disposition home or self-care (01) ==
LOC: CT 12:33
PROVIDERS: PCP Family Medicine; Referring Provider Internal Medicine Medical Oncology; Visit Provider Internal Medicine Medical Oncology
DX: C34.91 Malignant neoplasm of unspecified part of right bronchus or lung (principal)
CPT/HCPCS: 71250

== ENCOUNTER → 2023-07-18 | Outpatient (CLI) | payer MEDICARE, SELFPAY ==
--- NOTE | 2023-07-18 08:08 | CT_ITS ---
STUDY: CT CHEST WITH CONTRAST REASON FOR EXAM: Female, 77 years old. MONITOR LUNG CA RADIATION DOSAGE (If Supplied By Facility): CTDIvol = ( 13.74 ) mGy, DLP = ( 388.23 ) mGycm TECHNIQUE: Transaxial imaging was performed following intravenous administration of IV 100mL Isovue-300. Multiplanar coronal and sagittal images were reformatted. Individualized dose optimization techniques were used for this CT. COMPARISON: Comparison is made with prior study dated July 27, 2022. FINDINGS: CHEST The patient is status post right upper lobectomy. Stable 4 mm noncalcified nodule in the peripheral anterior aspect of the right lower lobe as seen on axial image #66. Stable small calcified granuloma in the left lower lobe. There is no demonstrated pleural abnormality. There are calcifications of the coronary arteries. Normal mediastinum. Normal hilar regions. Normal unenhanced pulmonary arteries. There is atherosclerotic calcification of the aortic arch with tortuosity and elongation of the aortic arch and descending thoracic aorta. There are multi-level degenerative changes of the thoracic spine. Status post left shoulder prosthesis. Hiatal hernia. CT/Chest WITH Contrast IMPRESSION: Stable examination. Electronically Signed: Kristopher Grace MD at 10:52 EDT ,
[2023-07-18 08:36] LABS: CREATININE FINGERSTICK 1.6 mg/dL (0.55-1.02)
== END | disposition home or self-care (01) ==
PROVIDERS: PCP Family Medicine; Referring Provider Internal Medicine Medical Oncology; Visit Provider Internal Medicine Medical Oncology
DX: C34.91 Malignant neoplasm of unspecified part of right bronchus or lung (principal)
CPT/HCPCS: 71260; Q9967

== ENCOUNTER → 2024-05-01 | Outpatient (CLI) | payer MEDICARE, SELFPAY ==
[2024-05-01 15:54] LABS: Absolute Lymphocyte Count 2.25 X10^3/uL (0.83-4.51); Absolute Neutrophil Count 4.9 X10^3/uL (2.0-7.7); Basophil# 0.08 X10^3/uL; Eosinophils% 4.8 % (0-5); Hematocrit 42.4 % (37-47); Hemoglobin 13.2 g/dL (12.0-15.0); Lymphocyte # 2.25 X10^3/ul (0.83-4.51); Mean Corp Hgb Conc 31.1 g/dL (32-36); Mean Corpuscular Hgb 28.1 pg (27.0-32.0); Mean Corpuscular Volume 90.2 fL (81-99); Mean Platelet Vol. 11.6 fl (6.2-12.0); Monocyte% 8.4 % (0-10); NRBC Flagged by Analyzer 0 % (0-5); Neutrophil # 4.86 X10^3/uL (2.7-7.7); Neutrophil % 58.3 % (47-70); Platelet Count 252 K/mm3 (150-450); RBC Distribution Width CV 14.4 % (11.6-14.6); RBC Distribution Width SD 47.8 fl (35.1-43.9); White Blood Count 8.3 K/mm3 (4.4-11.0)
[2024-05-01 16:58] LABS: Erythrocyte Sedimentation Rate 7 mm/hr (0-30)
[2024-05-01 20:58] LABS: ALB/GLOB Ratio 1.5 RATIO (0.9-2.4); AST(SGOT) 24 U/L (<=31); Alanine Aminotransfer ALT/SGPT 29 U/L (<=34); Albumin, Serum 4.5 g/dL (3.4-4.8); Alkaline Phosphatase 52 U/L (35-104); Anion Gap 13 (5-15); BUN 27 mg/dL (4-19); BUN/Creat Ratio 23.4 RATIO (10-20); Carbon Dioxide 22.7 mmol/L (21.0-32.0); Chloride 106 mmol/L (98-108); Creatinine, Serum 1.16 mg/dL (0.70-1.20); EST Glomerular Filtration Rate 48 (>60); Globulin 3.1 g/dL (2.2-4.2); Glucose 85 mg/dL (70-99); Potassium 4.7 mmol/L (3.3-5.1); Protein, Total 7.5 g/dL (5.9-8.4); Sodium Level 141 mmol/L (133-145); Total Bilirubin 0.36 mg/dL (0.00-1.30)
[2024-05-01 21:14] LABS: CRP < 3.00 mg/L (0.0-3.0); Rheumatoid Factor < 10.0 IU/mL (<15)
[2024-05-01 23:25] LABS: Hepatitis B Surface Antibody Nonreactive; Hepatitis B Surface Antigen Nonreactive (Nonreactive); Hepatitis C Antibody Nonreactive (Nonreactive)
[2024-05-04 23:07] LABS: CCP IgG Antibodies 7 units (0-19); G6PD Quant Test 299 (127-427); QNTFERON TB Mitogen Value 2.38 IU/mL (.); QNTFERON TB Nil Value 0 IU/mL (.); QNTFERON TB1+ Ag Value 0.01 IU/mL (.); QNTFERON TB2+ Ag Value 0 IU/mL (.); QNTIFERON TB Positive Criteria Negative (Negative)
== END | disposition home or self-care (01) ==
LOC: MTLAB 10:33
PROVIDERS: PCP Family Medicine; Referring Provider Internal Medicine Rheumatology; Visit Provider Internal Medicine Rheumatology
DX: M06.09 Rheumatoid arthritis without rheumatoid factor, multiple sites (principal); Z79.899 Other long term (current) drug therapy
CPT/HCPCS: 36415; 80053; 82955; 85025; 85652; 86140; 86200; 86431; 86480; 86706; 86803; 87340

== ENCOUNTER → 2024-06-20 | Outpatient (CLI) | payer MEDICARE, SELFPAY ==
[2024-06-20 12:22] LABS: Absolute Lymphocyte Count 1.91 X10^3/uL (0.83-4.51); Absolute Neutrophil Count 4.1 X10^3/uL (2.0-7.7); Basophil# 0.07 X10^3/uL; Eosinophil# 0.33 X10^3/uL; Eosinophils% 4.6 % (0-5); Hematocrit 39.6 % (37-47); Hemoglobin 12.9 g/dL (12.0-15.0); Lymphocyte # 1.91 X10^3/ul (0.83-4.51); Lymphocyte % 26.9 % (19-41); Mean Corp Hgb Conc 32.6 g/dL (32-36); Mean Corpuscular Hgb 28.9 pg (27.0-32.0); Mean Corpuscular Volume 88.8 fL (81-99); Mean Platelet Vol. 11.7 fl (6.2-12.0); Monocyte# 0.66 X10^3/uL; Monocyte% 9.3 % (0-10); NRBC Flagged by Analyzer 0 % (0-5); Neutrophil # 4.11 X10^3/uL (2.7-7.7); Neutrophil % 57.8 % (47-70); Platelet Count 249 K/mm3 (150-450); RBC Distribution Width SD 45.4 fl (35.1-43.9); Red Blood Count 4.46 M/mm3 (4.2-5.4); White Blood Count 7.1 K/mm3 (4.4-11.0)
[2024-06-20 12:54] LABS: ALB/GLOB Ratio 1.5 RATIO (0.9-2.4); AST(SGOT) 19 U/L (<=31); Alanine Aminotransfer ALT/SGPT 20 U/L (<=34); Albumin, Serum 4.3 g/dL (3.4-4.8); Alkaline Phosphatase 51 U/L (35-104); Anion Gap 11 (5-15); BUN 31 mg/dL (4-19); Carbon Dioxide 22.4 mmol/L (21.0-32.0); Chloride 106 mmol/L (98-108); Creatinine, Serum 1.15 mg/dL (0.70-1.20); EST Glomerular Filtration Rate 48 (>60); Globulin 2.8 g/dL (2.2-4.2); Glucose 102 mg/dL (70-99); Potassium 4.2 mmol/L (3.3-5.1); Sodium Level 139 mmol/L (133-145); Total Bilirubin 0.24 mg/dL (0.00-1.30)
== END | disposition home or self-care (01) ==
LOC: MTLAB 09:27
PROVIDERS: PCP Family Medicine; Referring Provider Internal Medicine Rheumatology; Visit Provider Internal Medicine Rheumatology
DX: M06.09 Rheumatoid arthritis without rheumatoid factor, multiple sites (principal)
CPT/HCPCS: 36415; 80053; 85025

== ENCOUNTER → 2024-07-16 | Outpatient (CLI) | payer MEDICARE, SELFPAY ==
--- NOTE | 2024-07-16 07:31 | CT_ITS ---
PROCEDURE: CT CHEST AND ABD W/ CONTRAST 07/16/2024 REASON FOR EXAM: MONITOR LUNG CA-IV ONLY TECHNIQUE: Chest and abdomen CT with intravenous contrast. Coronal and Sagittal reconstruction series were provided. One or more dose reduction techniques were used (e.g., Automated exposure control, adjustment of the mA and/or kV according to patient size, use of iterative reconstruction technique. PATIENT PREPARATION: Per protocol ORAL CONTRAST TYPE: None. CONTRAST: Isovue-350 VOLUME: 100mL RADIATION DOSE SUMMARY: CTDlvol: 17.89 mGy DLP: 875 mGycm COMPARISON: 07/18/2023. FINDINGS: The patient is status post right upper lobectomy. Stable 4 mm noncalcified nodule in the peripheral anterior aspect of the right lower lobe. Stable small calcified granuloma in the left lower lobe. Unremarkable left shoulder prosthesis. Unchanged small sliding hiatal hernia. Uncomplicated colonic diverticulosis. Fluid-filled proximal colon, possibly secondary to diarrhea. Normal enhancement of the main pulmonary artery and right and left pulmonary arteries. Normal thoracic aorta and visualized great vessels. There is no demonstrated aortic dissection. Normal heart and pericardium. Normal mediastinum. Normal hilar regions. Normal visualized trachea and bronchi. Normal pleura. Normal unenhanced liver. Normal gallbladder and extrahepatic biliary system. Normal unenhanced spleen. Normal pancreas. Normal bilateral adrenal glands. Normal size of the right kidney. There is no right renal mass. There are no right renal calculi. There is no right hydronephrosis. Normal visualized right ureter. Normal size of the left kidney. There is no left renal mass. There are no left renal calculi. There is no left hydronephrosis. Normal visualized left ureter. Normal visualized stomach. Normal small intestine. The appendix is visualized and appears normal. There is no demonstrated peritoneal fluid. Calcified atheromatous plaques of the abdominal aorta. Normal inferior vena cava. Normal retroperitoneum. Normal abdominal wall. CT/CT Chest AND Abd W/ Contrast IMPRESSION: The patient is status post right upper lobectomy. Stable 4 mm noncalcified nodule in the peripheral anterior aspect of the right lower lobe. Stable small calcified granuloma in the left lower lobe. Unremarkable left shoulder prosthesis. Unchanged small sliding hiatal hernia. Uncomplicated colonic diverticulosis. Fluid-filled proximal colon, possibly secondary to diarrhea. Coronary artery calcification (CAC) is present. Reading Location[facility]
== END | disposition home or self-care (01) ==
LOC: CT 07:28
PROVIDERS: PCP Family Medicine; Referring Provider Internal Medicine Medical Oncology; Visit Provider Internal Medicine Medical Oncology
DX: C34.91 Malignant neoplasm of unspecified part of right bronchus or lung (principal)
CPT/HCPCS: 71260; 74160; Q9967

== ENCOUNTER → 2024-09-12 | Outpatient (CLI) | payer MEDICARE, SELFPAY ==
[2024-09-12 10:32] LABS: Hematocrit 42.7 % (37-47); Hemoglobin 13.7 g/dL (12.0-15.0); Immature Granulocytes Count 0.030 X10^3/uL (0.0-0.0); Mean Corp Hgb Conc 32.1 g/dL (32-36); Mean Corpuscular Volume 88.6 fL (81-99); Mean Platelet Vol. 11.9 fl (6.2-12.0); NRBC Flagged by Analyzer 0 % (0-5); Platelet Count 242 K/mm3 (150-450); RBC Distribution Width CV 14.2 % (11.6-14.6); RBC Distribution Width SD 45.8 fl (35.1-43.9); Red Blood Count 4.82 M/mm3 (4.2-5.4); White Blood Count 8.6 K/mm3 (4.4-11.0)
[2024-09-12 10:50] LABS: AST(SGOT) 16 U/L (<=31); Alanine Aminotransfer ALT/SGPT 16 U/L (<=34); Albumin, Serum 4.5 g/dL (3.4-4.8); Alkaline Phosphatase 52 U/L (35-104); Anion Gap 13 (5-15); BUN 37 mg/dL (4-19); BUN/Creat Ratio 35.0 RATIO (10-20); Calcium,Total 10.1 mg/dL (7.6-11.0); Carbon Dioxide 22.9 mmol/L (21.0-32.0); Chloride 106 mmol/L (98-108); Globulin 3.1 g/dL (2.2-4.2); Glucose 99 mg/dL (70-99); Potassium 4.1 mmol/L (3.3-5.1)
== END | disposition home or self-care (01) ==
LOC: MTLAB 09:07
PROVIDERS: PCP Family Medicine; Referring Provider Internal Medicine Rheumatology; Visit Provider Internal Medicine Rheumatology
DX: M06.09 Rheumatoid arthritis without rheumatoid factor, multiple sites (principal); M65.341 Trigger finger, right ring finger; M17.0 Bilateral primary osteoarthritis of knee
CPT/HCPCS: 36415; 80053; 85025

== ENCOUNTER 2024-11-05 08:36 | Observation (INO) | payer MEDICARE, SELFPAY ==
--- OUTSIDE RECORDS SUMMARY | 2024-10-22 11:31 | XMS RPT_ITS ---
Author Name Auto Generated Organization OHIP Care Team Providers Care Mobile Lab Technician Name Role Phone WARNER Attending Unavailable ARTIE BOSS Admitting Unavailable ARTIE BOSS Primary Care Unavailable ARTIE BOSS Attending Unavailable MADELEINE GODINEZ Consulting Unavailable PROVIDER, UNKNOWN Consulting Unavailable PROVIDER, UNKNOWN Consulting Unavailable PROVIDER, UNKNOWN Consulting Unavailable MADELEINE GODINEZ Admitting Unavailable MADELEINE GODINEZ Primary Care Unavailable MADELEINE GODINEZ Consulting Unavailable MADELEINE GODINEZ Attending Unavailable PROVIDER, UNKNOWN Consulting Unavailable PROVIDER, UNKNOWN Consulting Unavailable PROVIDER, UNKNOWN Consulting Unavailable PROBLEMS No Problem Records Found PROCEDURES No Procedure Records Found RESULTS LIPID PANEL, STANDARD Collected: 2024 10:24 AM Status: F Source: Yesmail TYPE CODE TESTS RESULT OUT OF RANGE REFERENCE UNITS LAB [id number] CHOLESTEROL, TOTAL 203 High <200 mg/dL LAB [id number] HDL CHOLESTEROL 36 Low > OR = 50 mg/dL LAB [id number] TRIGLYCERIDES 460 High <150 mg/dL Result Comment: If a non-fasting specimen was collected, consider repeat triglyceride testing on a fasting specimen if clinically indicated. Wyatt et al. J. of Clin. Lipidol. 2015;9:129-169. LAB [id number] LDL-CHOLESTEROL Result Comment: LDL cholesterol not calculated. Triglyceride levels greater than 400 mg/dL invalidate calculated LDL results. Reference range: <100 Desirable range <100 mg/dL for primary prevention; <70 mg/dL for patients with CHD or diabetic patients with > or = 2 CHD risk factors. LDL-C is now calculated using the Donovan calculation, which is a validated novel method providing better accuracy than the Friedewald equation in the estimation of LDL-C. Aquilino BOWER et al. LOURDES. 2013;310(19): 3029-1451 (http://education.M[employer]/faq/MOE153) LAB [id number] CHOL/HDLC RATIO 5.6 High <5.0 (calc) LAB [id number] NON HDL CHOLESTEROL 167 High <130 mg/dL (calc) Result Comment: For patients with diabetes plus 1 major ASCVD risk factor, treating to a non-HDL-C goal of <100 mg/dL (LDL-C of <70 mg/dL) is considered a therapeutic option. Performed By: #### 82416, 76 00 #### [employer] [address], [address] [place] [phone] Inbound Sales Advisor: Teja Tavarez MD COMPREHENSIVE METABOLIC PANEL Collected : 07/04/2024 10:24 AM Status: F Source: Yesmail TYPE CODE TESTS RESULT OUT OF RANGE REFERENCE UNITS LAB [id number] GLUCOSE 99 Normal 65-99 mg/dL Result Comment: Fasting reference interval LAB [id number] UREA NITROGEN (BUN) 29 High 7-25 mg/dL LAB [id number] CREATININE 1.06 High 0.60-1.00 mg/dL LAB [id number] EGFR 53 Low > OR = 60 mL/min/1 .73m2 LAB [id number] BUN/CREATININE RATIO 27 High 6-22 (calc) LAB [id number] SODIUM 139 Normal 135-146 mmol/L LAB [id number] POTASSIUM 4.4 Normal 3.5-5.3 mmol/L LAB [id number] CHLORIDE 104 Normal 98-110 mmol/L LAB [id number] CARBON DIOXIDE 25 Normal 20-32 mmol/L LAB [id number] CALCIUM 10.2 Normal 8.6-10.4 mg/dL LAB [id number] PROTEIN, TOTAL 7.2 Normal 6.1-8.1 g/dL LAB [id number] ALBUMIN 4.5 Normal 3.6-5.1 g/dL LAB [id number] GLOBULIN 2.7 Normal 1.9-3.7 g/dL (calc) LAB [id number] ALBUMIN/GLOBUL IN RATIO 1.7 Normal 1.0-2.5 (calc) LAB [id number] BILIRUBIN, TOTAL 0.4 Normal 0.2-1.2 mg/dL LAB [id number] ALKALINE PHOSPHATASE 43 Normal 37-153 U/L LAB [id number] AST 18 Normal 10-35 U/L LAB [id number] ALT 18 Normal 6-29 U/L Performed By: #### 72305, 76 00 #### [facility] [address] [facility], [address] [place] [address] Inbound Sales Advisor: Teja Tavarez MD CERVICAL SP COMPLETE, 4 OR 5 VIEWS Observed: 04/10/2024 3:58 PM Status: F Source: [place] [id number] Patient: MORGAN DINH Phone#: : [phone] Age: 78 Gender: F Pt. Type: Out Account: [id number] Location: [facility] Ordering: MADELEINE GODINEZ Exam Date: 04/10/2024/15:00 Family Phys: Charge Code: 210559 Physician: Pinal Order #: [id number] Dose#: PROCEDURE: X-RAY CERVICAL SPINE W/ AP, LATERAL, ODONTOID, AND OLBIQUES VIEWS COMPARISON: None. INDICATIONS: Neck pain. FINDINGS: BONES: Severe degenerative changes are present at multiple levels. Osteophytes are present with foraminal narrowing bilaterally. DISC SPACES: Disc space narrowing is present most at the C5-6 and C6-7 levels. PARASPINOUS: Negative. No paraspinous abnormality is seen. OTHER: Negative. CONCLUSION: 1. Degenerative changes are present. Foraminal impingement is present. Dictated by: Raquel Carr MD on 04/10/2024 at 15:57 Approved by: Raquel Carr MD on 04/10/2024 at 15:58 LIPID PANEL, STANDARD Collected: 01/16/2024 8:07 AM Status: F Source: Yesmail TYPE CODE TESTS RESULT OUT OF RANGE REFERENCE UNITS LAB [id number] CHOLESTEROL, TOTAL 184 Normal <200 mg/dL LAB [id number] HDL CHOLESTEROL 38 Low > OR = 50 mg/dL LAB [id number] TRIGLYCERIDES 466 High <150 mg/dL Result Comment: If a non-fasting specimen was collected, consider repeat triglyceride testing on a fasting specimen if clinically indicated. Wyatt et al. J. of Clin. Lipidol. 2015;9:129-169. LAB [id number] LDL-CHOLESTEROL Result Comment: LDL cholesterol not calculated. Triglyceride levels greater than 400 mg/dL invalidate calculated LDL results. Reference range: <100 Desirable range <100 mg/dL for primary prevention; <70 mg/dL for patients with CHD or diabetic patients with > or = 2 CHD risk factors. LDL-C is now calculated using the Aquilino-Urbina calculation, which is a validated novel method providing better accuracy than the Friedewald equation in the estimation of LDL-C. Aquilino SS et al. LOURDES. 2013;310(19): 4760-0208 (http://education.[employer]/faq/YAL459) LAB [id number] CHOL/HDLC RATIO 4.8 Normal <5.0 (calc) LAB [id number] NON HDL CHOLESTEROL 146 High <130 mg/dL (calc) Result Comment: For patients with diabetes plus 1 major ASCVD risk factor, treating to a non-HDL-C goal of <100 mg/dL (LDL-C of <70 mg/dL) is considered a therapeutic option. Performed By: #### 79899, 76 00 #### Payment plugin [address], [address] [place] [phone] Inbound Sales Advisor: Teja Tavarez MD COMPREHENSIVE METABOLIC PANEL Collected : 01/16/2024 8:07 AM Status: F Source: Yesmail TYPE CODE TESTS RESULT OUT OF RANGE REFERENCE UNITS LAB [id number] GLUCOSE 107 High 65-99 mg/dL Result Comment: Fasting reference interval For someone without known diabetes, a glucose value between 100 and 125 mg/dL is consistent with prediabetes and should be confirmed with a follow-up test. LAB [id number] UREA NITROGEN (BUN) 30 High 7-25 mg/dL LAB [id number] CREATININE 0.90 Normal 0.60-1.00 mg/dL LAB [id number] EGFR 65 Normal > OR = 60 mL/min/1 .73m2 LAB [id number] BUN/CREATININE RATIO 33 High 6-22 (calc) LAB [id number] SODIUM 143 Normal 135-146 mmol/L LAB [id number] POTASSIUM 4.1 Normal 3.5-5.3 mmol/L LAB [id number] CHLORIDE 108 Normal 98-110 mmol/L LAB [id number] CARBON DIOXIDE 25 Normal 20-32 mmol/L LAB [id number] CALCIUM 9.8 Normal 8.6-10.4 mg/dL LAB 08468901 PROTEIN, TOTAL 7.2 Normal 6.1-8.1 g/dL LAB [id number] ALBUMIN 4.6 Normal 3.6-5.1 g/dL LAB 39180117 GLOBULIN 2.6 Normal 1.9-3.7 g/dL (calc) LAB [id number] ALBUMIN/GLOBUL IN RATIO 1.8 Normal 1.0-2.5 (calc) LAB [id number] BILIRUBIN, TOTAL 0.5 Normal 0.2-1.2 mg/dL LAB [id number] ALKALINE PHOSPHATASE 54 Normal 37-153 U/L LAB [id number] AST 16 Normal 10-35 U/L LAB [id number] ALT 17 Normal 6-29 U/L Performed By: #### 45284, 76 00 #### [facility] [address], [address] [place] [phone] Inbound Sales Advisor: Teja Tavarez MD ALLERGIES DATE TYPE / CODE NAME / CODE REACTION SEVERITY SOURCE Drug Allergy/12913625 2(SNOMED CT) AVELOX/43876308( RXNORM) Moderate (Severity Modifier) (Qualifier Value) [facility] ENCOUNTERS ADMIT/DISCHARGE ACCOUNT NUMBER ADMITTING ENCOUNTER CLASS LOCATION SOURCE 10/22/2024/ 5 [id number] ARTIE BOSS Ambulatory Building:[facility] 04/10/2024/ 5 [id number] MADELEINE GODINEZ Ambulatory Building:[facility] 03/05/2024 Ambulatory Building:[facility] PAYERS ENCOUNTER GUARANTOR PAYER SUBSCRIBER SOURCE 10/22/2024 MORGAN TROTTER: [id number] [address] [facility] [place] [id number]: () Primary Insurance:AETNA MEDICARE RECURRINGPolicy Number: [id number] Date:Plan Name: MORGAN TROTTER: [id number] [address] [id number] [facility] 04/10/2024 MORGAN TROTTER: [id number] [address], [place] [id number]: () Primary Insurance:AETNA MEDICARE OUTPATIENTPolicy Number: [id number] Date:Plan Name:LUKASZ TROTTER: [id number] [address] [id number] [facility]
--- OUTSIDE RECORDS SUMMARY | 2024-10-22 11:31 | XMS RPT_ITS ---
Author Name Auto Generated Organization OHIP Care Team Providers Care Lock Up Worker Name Role Phone ARTIE BOSS Admitting Unavailable ARTIE BOSS Primary Care Unavailable ARTIE BOSS Attending Unavailable MADELEINE GODINEZ Consulting Unavailable PROVIDER, UNKNOWN Consulting Unavailable PROVIDER, UNKNOWN Consulting Unavailable PROVIDER, UNKNOWN Consulting Unavailable MADELEINE GODINEZ Admitting Unavailable MADELEINE GODINEZ Primary Care Unavailable MADELEINE GODINEZ Consulting Unavailable MADELEINE GODINEZ Attending Unavailable PROVIDER, UNKNOWN Consulting Unavailable PROVIDER, UNKNOWN Consulting Unavailable PROVIDER, UNKNOWN Consulting Unavailable [facility] Attending Unavailable PROBLEMS No Problem Records Found PROCEDURES No Procedure Records Found RESULTS LIPID PANEL, STANDARD Collected: 2024 10:24 AM Status: F Source: [facility]) TYPE CODE TESTS RESULT OUT OF RANGE REFERENCE UNITS LAB [id number] CHOLESTEROL, TOTAL 203 High <200 mg/dL LAB [id number] HDL CHOLESTEROL 36 Low > OR = 50 mg/dL LAB [id number] TRIGLYCERIDES 460 High <150 mg/dL Result Comment: If a non-fasting specimen was collected, consider repeat triglyceride testing on a fasting specimen if clinically indicated. Wyatt et al. J. of Clin. Lipidol. 2015;9:129-169. LAB [id number] LDL-CHOLESTEROL Result Comment: LDL cholesterol not calculated. [...] LDL-C. Aquilino BOWER et al. LOURDES. 2013;310(19): 0889-9365 (http://education.Winchannel/faq/PHH132) LAB [id number] CHOL/HDLC RATIO 5.6 High <5.0 (calc) LAB [id number] NON HDL CHOLESTEROL 167 High <130 mg/dL (calc) Result Comment: For patients with diabetes plus 1 major ASCVD risk factor, treating to a non-HDL-C goal of <100 mg/dL (LDL-C of <70 mg/dL) is considered a therapeutic option. Performed By: #### 80117, 76 00 #### [facility] [employer] [address], [address] [place] [phone] Director Of Human Resources: Teja Tavarez MD COMPREHENSIVE METABOLIC PANEL Collected : 07/04/2024 10:24 AM Status: F Source: [facility] TYPE CODE TESTS RESULT OUT OF RANGE REFERENCE UNITS LAB [id number] GLUCOSE 99 Normal 65-99 mg/dL Result Comment: Fasting reference interval LAB [id number] UREA NITROGEN (BUN) 29 High 7-25 mg/dL LAB [id number] CREATININE 1.06 High 0.60-1.00 mg/dL LAB [id number] EGFR 53 Low > OR = 60 mL/min/1 .73m2 LAB [id number] BUN/CREATININE RATIO 27 High 6-22 (calc) LAB [id number] SODIUM 139 Normal 135-146 mmol/L LAB [id number] POTASSIUM 4.4 Normal 3.5-5.3 mmol/L LAB [id number] CHLORIDE 104 Normal 98-110 mmol/L LAB [id number] CARBON DIOXIDE 25 Normal 20-32 mmol/L LAB 61240392 CALCIUM 10.2 Normal 8.6-10.4 mg/dL LAB [id number] PROTEIN, TOTAL 7.2 Normal 6.1-8.1 g/dL LAB [id number] ALBUMIN 4.5 Normal 3.6-5.1 g/dL LAB 71225870 GLOBULIN 2.7 Normal 1.9-3.7 g/dL (calc) LAB [id number] ALBUMIN/GLOBUL IN RATIO 1.7 Normal 1.0-2.5 (calc) LAB [id number] BILIRUBIN, TOTAL 0.4 Normal 0.2-1.2 mg/dL LAB [id number] ALKALINE PHOSPHATASE 43 Normal 37-153 U/L LAB [id number] AST 18 Normal 10-35 U/L LAB [id number] ALT 18 Normal 6-29 U/L Performed By: #### 70152, 76 00 #### [facility] [address] [facility], [address] [place] [address] Director Of Human Resources: Teja Tavarez MD CERVICAL SP COMPLETE, 4 OR 5 VIEWS Observed: 04/10/2024 3:58 PM Status: F Source: [place] [address] Patient: MORGAN DINH Phone#: : [phone] Age: 78 Gender: F Pt. Type: Out Account: [id number] Location: [facility] Ordering: MADELEINE GODINEZ Exam Date: 04/10/2024/15:00 Family Phys: Charge Code: 723584 Physician: [place] Order #: [id number] Dose#: PROCEDURE: X-RAY CERVICAL SPINE W/ AP, [...] Collected: 01/16/2024 8:07 AM Status: F Source: [facility]) TYPE CODE TESTS RESULT OUT OF RANGE REFERENCE UNITS LAB [id number] CHOLESTEROL, TOTAL 184 Normal <200 mg/dL LAB [id number] HDL CHOLESTEROL 38 Low > OR = 50 mg/dL LAB [id number] TRIGLYCERIDES 466 High <150 mg/dL Result Comment: If a non-fasting specimen was collected, consider repeat triglyceride testing on a fasting specimen if clinically indicated. Wyatt et al. J. of Clin. Lipidol. 2015;9:129-169. LAB [id number] LDL-CHOLESTEROL Result Comment: LDL cholesterol not calculated. [...] LDL-C. Aquilino SS et al. LOURDES. 2013;310(19): 7432-0105 (http://education.Winchannel/faq/WIE193) LAB [id number] CHOL/HDLC RATIO 4.8 Normal <5.0 (calc) LAB [id number] NON HDL CHOLESTEROL 146 High <130 mg/dL (calc) Result Comment: For patients with diabetes plus 1 major ASCVD risk factor, treating to a non-HDL-C goal of <100 mg/dL (LDL-C of <70 mg/dL) is considered a therapeutic option. Performed By: #### 96871, 76 00 #### [facility] [employer] [address], [address] [place] [phone] Director Of Human Resources: Teja Tavarez MD COMPREHENSIVE METABOLIC PANEL Collected : 01/16/2024 8:07 AM Status: F Source: [facility]) TYPE CODE TESTS RESULT OUT OF RANGE REFERENCE UNITS LAB [id number] GLUCOSE 107 High 65-99 mg/dL Result Comment: Fasting reference interval For someone without known diabetes, a glucose value between 100 and 125 mg/dL is consistent with prediabetes and should be confirmed with a follow-up test. LAB [id number] UREA NITROGEN (BUN) 30 High 7-25 mg/dL LAB [id number] CREATININE 0.90 Normal 0.60-1.00 mg/dL LAB [id number] EGFR 65 Normal > OR = 60 mL/min/1 .73m2 LAB 02442026 BUN/CREATININE RATIO 33 High 6-22 (calc) LAB 90446924 SODIUM 143 Normal 135-146 mmol/L LAB [id number] POTASSIUM 4.1 Normal 3.5-5.3 mmol/L LAB 94327713 CHLORIDE 108 Normal 98-110 mmol/L LAB 49402327 CARBON DIOXIDE 25 Normal 20-32 mmol/L LAB 77140946 CALCIUM 9.8 Normal 8.6-10.4 mg/dL LAB 01563473 PROTEIN, TOTAL 7.2 Normal 6.1-8.1 g/dL LAB [id number] ALBUMIN 4.6 Normal 3.6-5.1 g/dL LAB [id number] GLOBULIN 2.6 Normal 1.9-3.7 g/dL (calc) LAB 56504501 ALBUMIN/GLOBUL IN RATIO 1.8 Normal 1.0-2.5 (calc) LAB [id number] BILIRUBIN, TOTAL 0.5 Normal 0.2-1.2 mg/dL LAB [id number] ALKALINE PHOSPHATASE 54 Normal 37-153 U/L LAB [id number] AST 16 Normal 10-35 U/L LAB [id number] ALT 17 Normal 6-29 U/L Performed By: #### 24710, 76 00 #### [facility] [address], [address] [place] [phone] Director Of Human Resources: Teja Tavarez MD ALLERGIES DATE TYPE / CODE NAME / CODE REACTION SEVERITY SOURCE Drug Allergy/41333854 2(SNOMED CT) AVELOX/40157887( RXNORM) Moderate (Severity Modifier) (Qualifier Value) [facility] ENCOUNTERS ADMIT/DISCHARGE ACCOUNT NUMBER ADMITTING ENCOUNTER CLASS LOCATION SOURCE 10/22/2024/ 5 [id number] ARTIE BOSS Ambulatory Building:[facility] 04/10/2024/ 5 [id number] MADELEINE GODINEZ Ambulatory Building:[facility] 03/05/2024 Ambulatory Building:[facility] PAYERS ENCOUNTER GUARANTOR PAYER SUBSCRIBER SOURCE 10/22/2024 MORGAN TROTTER: [id number] [address] [facility] [place] [id number]: () Primary Insurance:AETNA MEDICARE RECURRINGPolicy Number: [id number] Date:Plan Name: MORGAN TROTTER: [id number] [address], [place] [id number] [facility] 04/10/2024 MORGNA TROTTER: [id number] [address] [id number]: () Primary Insurance:AETNA MEDICARE OUTPATIENTPolicy Number: [id number] Date:Plan Name:LUKASZ TROTTER: [id number] [address] [id number] [facility]
[2024-11-05] VITALS (8 sets, daily range): BP systolic 115–155; BP diastolic 41–68; PULSE 77–106; RESP 15–22; TEMP 36.5–37.2; O2SAT 93–98; BMI 30.1; BMI 30.5
--- NOTE | 2024-11-05 08:49 | RAD_ITS ---
PROCEDURE: CHEST PA AND LATERAL 11/05/2024 REASON FOR EXAM: FEVER TECHNIQUE: Procedure Code: RADCXR Modality: DX Procedure: CHEST PA AND LATERAL COMPARISON: CT dated 07/18/2023 FINDINGS: Hardware: Total left shoulder prosthesis in place. Heart: Unremarkable. Mediastinum: Unremarkable. Atherosclerotic aorta. Lungs: Unremarkable. Bones: Degenerative changes are present. RAD/Chest PA and Lateral IMPRESSION: No radiographic evidence of acute cardiopulmonary disease. Reading Location: [place] [address]
--- NOTE | 2024-11-05 08:49 | RAD_ITS ---
PROCEDURE: KNEE 3 VIEWS 11/05/2024 REASON FOR EXAM: PAIN POST KNEE REPLACEMENT TECHNIQUE: Procedure Code: RADPAT Modality: DX Procedure: KNEE 3 VIEWS Right knee three views COMPARISON: None FINDINGS: There is total knee prosthesis in position with no visible hardware failure or loosening. There is a visible joint effusion. Soft tissue swelling is noted anteriorly. Radiopaque material is noted at the skin surface. RAD/Knee 3 Views IMPRESSION: Hardware in position. There is a visible joint effusion with soft tissue swelling. Reading Location: [facility]
--- NOTE | 2024-11-05 08:49 | VDLE_ITS ---
Reason For Study Reason For Study: RLE Pain RIGHT CFV is compressible, spontaneous, phasic, competent and demonstrates normal augmentation. FV is compressible, spontaneous, phasic, competent and demonstrates normal augmentation. POP V is compressible, spontaneous, phasic, competent and demonstrates normal augmentation. T/P Trunk is compressible. PTV is compressible. RT PerV is compressible. Unable to visualize Rt GSV. Procedure This is a venous duplex using B-mode, color flow and spectral Doppler. Exam performed portable in ED. The exam was diagnostic. A preliminary report was called and/or faxed to Dr. Leiva. VL/Venous Duplex US, Unilateral Interpretation Summary Deep veins of the right lower extremity are patent and compressible segmentally . There is no evidence of right lower extremity deep vein thrombosis. Valvular competence appears intact within the p roximal deep venous system on the right . The right great saphenous vein was not visualized. Ordering Physician: Los Leiva Referring Physician: Ilan Aguillon Performed By: Osito He RVT
--- NOTE | 2024-11-05 08:54 | EDS_ITS ---
HPI History of Present Illness Chief Complaint: Fever Informant: patient Onset/Context/Timing Onset: Today Timing: Continuous Current Severity: Mild Maximum Severity: Mild Narrative Narrative: 78-year-old female history of chronic kidney disease and hypertension. Week ago at the [facility] where she had her right knee replaced. She been doing well. Said she has had some constipation. She has had consistent pain in her right knee does not feel it is improving. Has had some leg swelling. She is currently on Lovenox shots took her last shot last night. She is also currently on an antibiotic. She just did not feel very well. Denies any dysuria. No cough. No shortness of breath. Prior similar symptoms: Yes Recent Illness/Hospitalization: Yes [facility] Medical History Osteoporosis Rheumatoid arthritis Hypertension History of UTI Polyarthropathy Hyperglyceridemia CKD (chronic kidney disease) Hypertriglyceridemia Benign hypertension GERD (gastroesophageal reflux disease) Insomnia Home Medications ?Medication ?Instructions ?Recorded ?Last Taken ?Type aspirin 81 mg tablet,delayed 81 mg PO DAILY@0800 08/28 Unknown History release Held on 11/05/24. Instructions: Ordered atenolol 50 mg-chlorthalidone 25 0.5 tab PO DAILY 08/0811/04/24 History mg tablet lisinopril 20 mg tablet 20 mg PO DAILY 08/28/1310/09 History albuterol sulfate 90 mcg/actuation 2 puff inhalation Q 6H PRN 03/06/20 Unknown Rx aerosol inhaler shortness of breath or wheez ing #8.5 grams atorvastatin 40 mg tablet 40 mg PO QHS 07/29/22 History docusate sodium 100 mg capsule 100 mg PO QDAY 07/23/24 11/04/24 History (Colace) omega 4-sdr-uay-fish oil 1,200 mg 2 cap PO BID 5 Unknown History (144 mg-216 mg) capsule (Fish Oil) Held on 11/05/24. Instructions: Ordered prednisone 5 mg tablet 5 mg PO QDAY PRN flare 07/2310/15/24 History tramadol 50 mg tablet 50 mg PO QDAY 07/23/2411/04 History acetaminophen 650 mg 1,300 mg PO DAILY 11/05/24 0 11/04/24 History tablet,extended release (8 Hour Pain Reliever)
--- NOTE | 2024-11-05 08:54 | EX.ED.DYSGE1 ---
HPI History of Present Illness Chief Complaint: Fever Informant: patient Onset/Context/Timing Onset: Today Timing: Continuous Current Severity: Mild Maximum Severity: Mild Narrative Narrative: 78-year-old female history of chronic kidney disease and hypertension. Week ago at the [facility] where she had her right knee replaced. She been doing well. Said she has had some constipation. She has had consistent pain in her right knee does not feel it is improving. Has had some leg swelling. She is currently on Lovenox shots took her last shot last night. She is also currently on an antibiotic. She just did not feel very well. Denies any dysuria. No cough. No shortness of breath. Prior similar symptoms: Yes Recent Illness/Hospitalization: Yes [facility] Medical History Osteoporosis Rheumatoid arthritis Hypertension History of UTI Polyarthropathy Hyperglyceridemia CKD (chronic kidney disease) Hypertriglyceridemia Benign hypertension GERD (gastroesophageal reflux disease) Insomnia Home Medications ?Medication ?Instructions ?Recorded ?Last Taken ?Type aspirin 81 mg tablet,delayed 81 mg PO DAILY@0800 08/28/13 Unknown History release Held on 11/05/24. Instructions: Ordered atenolol 50 mg-chlorthalidone 25 0.5 tab PO DAILY 08/28/13 11/04/24 History mg tablet lisinopril 20 mg tablet 20 mg PO DAILY 08/28/13 11/04/24 History albuterol sulfate 90 mcg/actuation 2 puff inhalation Q6H PRN 03/06/20 Unknown Rx aerosol inhaler shortness of breath or wheezing #8.5 grams atorvastatin 40 mg tablet 40 mg PO QHS 07/29/22 11/04/24 History docusate sodium 100 mg capsule 100 mg PO QDAY 07/23/24 11/04/24 History (Colace) omega 8-ali-cuj-fish oil 1,200 mg 2 cap PO BID 07/23/24 Unknown History (144 mg-216 mg) capsule (Fish Oil) Held on 11/05/24. Instructions: Ordered prednisone 5 mg tablet 5 mg PO QDAY PRN flare 07/23/24 10/15/24 History tramadol 50 mg tablet 50 mg PO QDAY 07/23/24 11/04/24 History acetaminophen 650 mg 1,300 mg PO DAILY 11/05/24 11/04/24 History tablet,extended release (8 Hour Pain Reliever) amlodipine 10 mg tablet 10 mg PO QHS 11/05/24 11/04/24 History carboxymethylcellulose sodium 0.25 1 drp EACH EYE DAILY PRN dry eye(s) 11/05/24 10/30/24 History % eye drops in a dropperette (TheraTears) cefadroxil 500 mg capsule 500 mg PO Q12H 11/05/24 11/04/24 History diphenhydramine HCl 50 mg capsule 50 mg PO QHS 11/05/24 11/04/24 History (Sleep Aid (diphenhydramine)) enoxaparin 30 mg/0.3 mL 30 mg subcut Q12H 11/05/24 11/04/24 History subcutaneous syringe golimumab 12.5 mg/mL intravenous 100 mg IV .COMPLEX 11/05/24 10/03/24 History solution (Simponi ARIA) olopatadine 0.2 % eye drops 1 drp EACH EYE DAILY PRN itching 11/05/24 10/30/24 History (Pataday Once Daily Relief) zadador 1 gtt EACH EYE DAILY PRN allergy 11/05/24 10/30/24 History symptoms Allergy/AdvReac Type Severity Reaction Status Date / Time moxifloxacin (From Avelox) Allergy Intermediate Rash Verified 07/23/24 11:23 Sulfa (Sulfonamide Allergy Itching Verified 07/23/24 11:23 Antibiotics) leflunomide (From Arava) AdvReac Mild other Verified 07/23/24 11:23 Family History Father Myocardial infarction Mother CVA (cerebral vascular accident) Brother Heart disease Hypertension Surgical History H/O blepharoplasty 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 Malaise. Nausea and vomiting. Constitutional Constitutional ED: Reports fever(s) Eyes Eyes: Denies blurry vision ENT ENT ED: Denies ear pain Cardiovascular Cardiovascular: Denies chest pain Respiratory/Chest Respiratory/Chest: Denies cough or dyspnea Gastrointestinal Gastrointestinal: Denies abdominal pain Genitourinary Genitourinary ED: Denies dysuria or hematuria Musculoskeletal Musculoskeletal: Denies arthralgias or back pain Integumentary Denies abscess Neurologic Neurologic: Denies headache(s) Psychiatric Psychiatric: Denies anxiety Endocrine Endocrinology: Denies cold intolerance Hematologic/Lymphatic Hematologic/Lymphatic: Reports none Allergic/Immunologic Allergic/Immunologic ED: Denies mouth swelling, tongue swelling or urticaria EXAM Physical Exam Narrative Exam Narrative: 78-year-old female sitting upright in bed vital signs stable currently afebrile temperature 98.3. She does not appear to be septic or toxic. She is in no acute distress. Family in the room. H EENT exam pupils are round reactive light. Mildly dry mucous membranes. Neck nontender no JVD. Back nontender. Lungs clear to auscultation bilaterally. Heart regular rhythm no murmur. Abdomen is soft and nontender. Moving all 4 extremities. She has limited range of motion of her right knee she has a bandage in place the wound is dry and clean. There is swelling of the right leg. Dorsi plantarflexion is intact. There is resolving bruising around the right knee it is mildly warm to the touch. Neurologically she is awake and alert. Answering questions following commands. Normal strength. Const Vital Signs: 11/05/24 08:39 11/05/24 09:48 11/05/24 10:00 Temperature 98.3 F 98.9 F 98.4 F Temperature Source Oral Oral Oral Pulse Rate 106 H 78 82 Respiratory Rate 22 H 16 16 Blood Pressure 155/68 H 143/59 H 131/55 H Blood Pressure Mean 97 87 80 Pulse Ox 97 98 97 Oxygen Delivery Method Room Air Room Air Room Air 11/05/24 11:00 11/05/24 11:58 Temperature 98.3 F 97.9 F Temperature Source Oral Oral Pulse Rate 87 83 Respiratory Rate 18 18 Blood Pressure 115/51 L 120/41 L Blood Pressure Mean 72 67 Pulse Ox 94 96 Oxygen Delivery Method Room Air Room Air Positive well nourished and well developed; Negative for cachectic, contractures or unkempt General Appearance ED: well developed and NAD; Negative for unkempt, cachectic, contractures, cyanotic, diaphoretic or pallor Nutritional Appearance: Negative for cachectic HEENT Reports dry mucous membranes Negative for trauma or tenderness Mouth ED: Yes dry mucous membranes Mouth: dry mucous membranes Eyes PERRL and EOMs intact bilaterally General Eye ED: Negative for pale conjunctiva or scleral icterus Neck no lymphadenopathy, supple and no JVD Chest Wall inspection of chest normal and palpation of chest normal Resp normal respiratory effort and clear to auscultation bilaterally Effort and Inspection: Negative for retractions Auscultation: Negative for rales, rhonchi, wheezes or diminished lung sounds Cardio regular rate, regular rhythm, S1 normal heart sound, S2 normal heart sound and no murmurs GI normal to inspection, nondistended, normoactive bowel sounds, non-tender, non-distended and no masses Auscultation: normoactive bowel sounds Palpation: soft; Negative for tender, guarding or rebound tenderness present Back/Spine no CVA tenderness General Back: Negative for CVA tenderness Cervical Spine: Negative for cervical spine tenderness Thoracic Spine / Upper Back: Negative for thoracic spinal tenderness or paraspinal muscle tenderness Lumbar Spine / Lower Back: Negative for lumbar spinal tenderness Extremity Negative for normal to inspection Extremity Narrative: Status post right knee replacement a week ago. Incision dry and clean. Swelling to the leg. No calf tenderness. Dorsi plantarflexion intact. There is resolving bruising about the knee. It is warm to the touch.Limited range of motion of the knee which would be expected 1 week post knee replacement. General Extremety ED: Yes edema; Negative for tenderness General Extremity: edema Neuro oriented x3 and CN's II-XII intact bilaterally Sensorium / Orientation: alert; Negative for orientation impaired Motor Exam: strength 5/5 throughout Psych mental status grossly normal Appearance: Negative for unkempt Skin no rashes or lesions noted, no wounds and skin turgor normal General Skin Exam: Negative for jaundice or pallor Lesions: No lesion noted MDM MDM MDM Narrative Medical decision making narrative: 78-year-old female malaise possibly low-grade fever after knee replacement rule out infection. The knee is more warm to the touch do not expect. It is a possibility. But reportedly she is on antibiotics. She is also on Lovenox shots to prevent DVT. Screening labs for infection will be obtained. She denies any cough or dysuria. Also obtain an ultrasound of the leg to rule out DVT. Repeat exam at 11:45 AM Multiple repeat exams the more alert of the right knee there is no cellulitis. Normal postop swelling. I do not think this is infected. The ultrasound the leg showed no DVT. The x-ray was unremarkable other than postop swelling and edema. There is no other signs of infection on the patient and her labs are basically unremarkable. I think this is more of a failure to thrive. She is constipated. She has nausea. Is controlling her knee pain. Deceiving get her admitted to hospitalist service. I have discussed the plan with both her and her family they are comfortable with the plan. History & Record Review Discussion w/independent historian: Patient and Family Additional record(s) reviewed:: Prior inpatient record, Prior outpatient record, Prior ED visit and Prior labs Lab Data Attestation: I reviewed the patient's lab results. Lab results narrative: CBC shows a white count just above normal at 11.3. H&H 11.6 and 35. Platelets 315. ESR mildly elevated at 53. COVID, flu and RSV are negative. Chest x-ray negative. Venous study right leg no DVT. Chemistry shows sodium 137. Gap 14. BUN and creatinine of 44 and 1 consistent with dehydration. Glucose 123. Lactic acid is 1.3. C-reactive protein is 113. Labs: Laboratory Results - last 24 hr 11/05/24 11/05/24 11/05/24 09:06 09:17 11:17 WBC 11.3 H RBC 4.04 L Hgb 11.6 L Hct 35.5 L MCV 87.9 MCH 28.7 MCHC 32.7 RDW Std Deviation 43.9 RDW Coeff of Marcial 13.5 Plt Count 315 MPV 11.3 Immature Gran % (Auto) 1.200 H Neut % (Auto) 68.3 Lymph % (Auto) 17.1 L [place] % (Auto) 10.6 H Eos % (Auto) 2.2 Baso % (Auto) 0.6 Absolute Neuts (auto) 7.7 Absolute Lymphs (auto) 1.92 Nucleated RBC % 0 ESR 53 H Sodium 137 Potassium 3.7 Chloride 98 Carbon Dioxide 24.3 Anion Gap 14 BUN 44 H Creatinine 1.03 Estim Creat Clear Calc 43.54 L Est GFR (MDRD) Non-Af 55 L BUN/Creatinine Ratio 42.9 H Glucose 123 H Lactic Acid 1.3 Calcium 9.6 C-React Prot Ext Range 113.00 H Urine Color Yellow Urine Clarity Clear Urine pH 5.0 Ur Specific [place] 1.015 Urine Protein 15 H Urine Glucose (UA) Normal Urine Ketones Negative Urine Occult Blood Negative Urine Nitrite Negative Urine Bilirubin Negative Urine Urobilinogen Normal Ur Leukocyte Esterase 25 H Urine RBC 0 SEEN Urine WBC 0 SEEN Ur Squamous Epith Cells 0-5 SEEN Urine Bacteria 0 SEEN Urine Mucus 0 SEEN Radiography Chest X-Ray - ED: 2 View, Read by ED Physician, Heart, Lungs, Mediastinum, Bony Structures, No Acute Disease and Chronic Changes Diagnostic Testing: Clinical Impression(s) from Imaging Studies Chest X-Ray 11/05/24 08:49 IMPRESSION: No radiographic evidence of acute cardiopulmonary disease. Reading Location: [place] [id number] Knee X-Ray 11/05/24 08:49 IMPRESSION: Hardware in position. There is a visible joint effusion with soft tissue swelling. Reading Location: [facility] KUB X-Ray 11/05/24 12:15 IMPRESSION: There is gas and stool throughout the colon with an increased stool load, consistent with constipation. Reading Location: [facility] Chest x-ray, 2 views, AP and lateral, interpreted by myself shows normal cardiac silhouette. Normal lung paul. No acute process. Prior left shoulder replacement. No pneumonia. Right knee x-ray, 3 views, interpreted by myself and radiologist shows recent right knee replacement. Joint effusion. Soft tissue swelling. Discharge Plan Dx/Rx/DC Orders Clinical Impression: Status post knee replacement, Acute knee pain, Constipation, Adult failure to thrive, Acute dehydration, Nausea Disposition Disposition: [facility]
[2024-11-05] MEDS: 0.9% Normal Saline (1000mL) 1,000 ML 1000 ML IV (09:17)
[2024-11-05 09:25] LABS: Hematocrit 35.5 % (37-47); Hemoglobin 11.6 g/dL (12.0-15.0); Immature Granulocytes Count 0.130 X10^3/uL (0.0-0.0); Mean Corp Hgb Conc 32.7 g/dL (32-36); Mean Corpuscular Volume 87.9 fL (81-99); Mean Platelet Vol. 11.3 fl (6.2-12.0); NRBC Flagged by Analyzer 0 % (0-5); Platelet Count 315 K/mm3 (150-450); RBC Distribution Width CV 13.5 % (11.6-14.6); RBC Distribution Width SD 43.9 fl (35.1-43.9); Red Blood Count 4.04 M/mm3 (4.2-5.4); White Blood Count 11.3 K/mm3 (4.4-11.0)
[2024-11-05 10:12] LABS: Anion Gap 14 (5-15); BUN 44 mg/dL (4-19); BUN/Creat Ratio 42.9 RATIO (10-20); CRP 113.00 mg/L (0.0-3.0); Calcium,Total 9.6 mg/dL (7.6-11.0); Carbon Dioxide 24.3 mmol/L (21.0-32.0); Chloride 98 mmol/L (98-108); Estimated Creatinine Clearance 43.54 ml/min (50-250); Glucose 123 mg/dL (70-99); Potassium 3.7 mmol/L (3.3-5.1)
[2024-11-05 11:23] LABS: Mucous, Urine 0 SEEN /hpf (<or=2+); Red Blood Cells-Urine 0 SEEN /hpf (0-5)
[2024-11-05 11:26] LABS: Color, Urine Yellow (Yellow); Glucose, Dipstick Normal (Normal); Ketone-Dipstick Negative (Negative); Leukocyte Esterase-Dipstick 25 /ul (Negative); Nitrite-Dipstick Negative (Negative); Occult Blood-Urine Negative /ul (Negative); Protein-Dipstick 15 mg/dl (Negative); Specific Gravity, Urine 1.015 (1.002-1.030); Urine Bilirubin Dipstick Negative (Negative)
[2024-11-05 11:32] LABS: Squamous Epithelial Cells - UA 0-5 SEEN /hpf (5-10)
[2024-11-05] MEDS: 0.9% Normal Saline (1000mL) 1,000 ML 999 ML IV (12:04)
--- NOTE | 2024-11-05 12:15 | RAD_ITS ---
PROCEDURE: ABDOMEN SINGLE VIEW 11/05/2024 REASON FOR EXAM: CONSTIPATION TECHNIQUE: Procedure Code: RADABD Modality: DX Procedure: ABDOMEN SINGLE VIEW COMPARISON: None FINDINGS: There is gas and stool throughout the colon with an increased stool load, consistent with constipation. No air-fluid levels are seen no pathologic calcification or acute bony abnormality is identified. RAD/Abdomen Single View IMPRESSION: There is gas and stool throughout the colon with an increased stool load, consi stent with constipation. Reading Location: [facility]
--- NOTE | 2024-11-05 13:06 | PCM.HP.STD ---
HPI - General General Date of Admission: 11/05/24 Date of Service: 11/05/24 Chief Complaint: weakness HPI Narrative MORGAN DINH, is a 78 F with a past medical history as outlined was admitted to the ED on 11/05/2024 with a complaint of debility and weakness. Patient had right knee replacement done at [facility] last Tuesday which was about 5 days prior to presentation. She was discharged home. She says she was initially able to ambulate but subsequently felt much weaker and was not able to do much or resolved. She has also not had a bowel movement in about a week. She just felt weaker and more lethargic so she was brought into the hospital. She thought she had a low-grade fever at home and said it was registered at about 98.6 Fahrenheit. She denied any nausea or vomiting. She states she still had 10/10 pain at the site of the surgery in the right knee. She denied any cough, chest pain, palpitations, nausea or vomiting or any other such symptoms. Review of systems otherwise negative. Vitals in the ED were temperature of 97.8 Fahrenheit, blood pressure 130/49, respiratory rate of 18 and she was saturating at 93% on room air. CBC showed hemoglobin of 11.6 with WBC of 11.3 and platelets of 315. ESR was 53. Chemistry showed sodium of 137 with potassium of 3.7. Bicarb was 24.3. Creatinine was 1.03. BUN was 44. CRP was 113. Urinalysis showed no evidence of UTI. Duplex of the lower extremity done was negative for any evidence of DVT and right knee x-ray showed visible joint effusion with soft tissue swelling. Abdominal KUB showed gas and stool throughout the colon with increased stool load consistent with constipation. She has been admitted to be managed for debility and weakness as well as severe constipation in the setting of recent right knee replacement. [facility] Medical History Osteoporosis Rheumatoid arthritis Hypertension History of UTI Polyarthropathy Hyperglyceridemia CKD (chronic kidney disease) Hypertriglyceridemia Benign hypertension GERD (gastroesophageal reflux disease) Insomnia Home Medications ?Medication ?Instructions ?Recorded ?Last Taken ?Type aspirin 81 mg tablet,delayed 81 mg PO DAILY@0800 08/28/13 Unknown History release Held on 11/05/24. Instructions: Ordered atenolol 50 mg-chlorthalidone 25 0.5 tab PO DAILY 08/28/13 11/04/24 History mg tablet lisinopril 20 mg tablet 20 mg PO DAILY 08/28/13 11/04/24 History albuterol sulfate 90 mcg/actuation 2 puff inhalation Q6H PRN 03/06/20 Unknown Rx aerosol inhaler shortness of breath or wheezing #8.5 grams atorvastatin 40 mg tablet 40 mg PO QHS 07/29/22 11/04/24 History docusate sodium 100 mg capsule 100 mg PO QDAY 07/23/24 11/04/24 History (Colace) omega 7-oyt-vkh-fish oil 1,200 mg 2 cap PO BID 07/23/24 Unknown History (144 mg-216 mg) capsule (Fish Oil) Held on 11/05/24. Instructions: Ordered prednisone 5 mg tablet 5 mg PO QDAY PRN flare 07/23/24 10/15/24 History tramadol 50 mg tablet 50 mg PO QDAY 07/23/24 11/04/24 History acetaminophen 650 mg 1,300 mg PO DAILY 11/05/24 11/04/24 History tablet,extended release (8 Hour Pain Reliever) amlodipine 10 mg tablet 10 mg PO QHS 11/05/24 11/04/24 History carboxymethylcellulose sodium 0.25 1 drp EACH EYE DAILY PRN dry eye(s) 11/05/24 10/30/24 History % eye drops in a dropperette (TheraTears) cefadroxil 500 mg capsule 500 mg PO Q12H 11/05/24 11/04/24 History diphenhydramine HCl 50 mg capsule 50 mg PO QHS 11/05/24 11/04/24 History (Sleep Aid (diphenhydramine)) enoxaparin 30 mg/0.3 mL 30 mg subcut Q12H 11/05/24 11/04/24 History subcutaneous syringe golimumab 12.5 mg/mL intravenous 100 mg IV .COMPLEX 11/05/24 10/03/24 History solution (Simponi ARIA) olopatadine 0.2 % eye drops 1 drp EACH EYE DAILY PRN itching 11/05/24 10/30/24 History (Pataday Once Daily Relief) zadador 1 gtt EACH EYE DAILY PRN allergy 11/05/24 10/30/24 History symptoms Allergy/AdvReac Type Severity Reaction Status Date / Time moxifloxacin (From Avelox) Allergy Intermediate Rash Verified 07/23/24 11:23 Sulfa (Sulfonamide Allergy Itching Verified 07/23/24 11:23 Antibiotics) leflunomide (From Arava) AdvReac Mild other Verified 07/23/24 11:23 Family History Father Myocardial infarction Mother CVA (cerebral vascular accident) Brother Heart disease Hypertension Surgical History H/O blepharoplasty History of surgical removal of squamous cell carcinoma of skin of left uatsdin Histoyr of lobectomy of right lung History of sinus surgery H/O dilation and curettage H/O shoulder replacement H/O total knee replacement History of cataract surgery Social History Smoking Status: Former smoker ROS Constitutional Constitutional: Reports fatigue, malaise and weakness; Denies anorexia, chills or fever(s) Eyes Eyes: Denies change in vision ENT HEENT: Denies dysphagia, headache(s) or sore throat Cardiovascular Cardiovascular: Denies chest pain, dyspnea on exertion, edema, lightheadedness, orthopnea, palpitations, paroxysmal nocturnal dyspnea, rapid heart rate or syncope Respiratory/Chest Respiratory/Chest: Denies cough, productive cough, shortness of breath at rest or shortness of breath with exertion Gastrointestinal Gastrointestinal: Reports constipation; Denies abdominal pain, diarrhea, nausea or vomiting Genitourinary Genitourinary: Denies difficulty urinating or dysuria Musculoskeletal Musculoskeletal: Reports joint pain and joint swelling; Denies back pain, joint stiffness, myalgias or neck pain Neurologic Neurologic: Denies confusion, dizziness, focal weakness, headache(s), numbness, seizures, syncope or tingling Psychiatric Psychiatric: Denies depression Vital Signs Vital Signs Vital Signs: 11/05/24 08:39 11/05/24 09:48 11/05/24 10:00 Temperature 98.3 F 98.9 F 98.4 F Temperature Source Oral Oral Oral Pulse Rate 106 H 78 82 Respiratory Rate 22 H 16 16 Blood Pressure 155/68 H 143/59 H 131/55 H Blood Pressure Mean 97 87 80 Pulse Ox 97 98 97 Oxygen Delivery Method Room Air Room Air Room Air 11/05/24 11:00 11/05/24 11:58 Temperature 98.3 F 97.9 F Temperature Source Oral Oral Pulse Rate 87 83 Respiratory Rate 18 18 Blood Pressure 115/51 L 120/41 L Blood Pressure Mean 72 67 Pulse Ox 94 96 Oxygen Delivery Method Room Air Room Air Weight Weight: 169 lb 15.622 oz Body Mass Index (BMI) 30.1 Physical Exam Const alert, oriented x3 and no apparent distress Constitutional Narrative: looks frail and weak General Appearance: cooperative HEENT normocephalic, head/scalp atraumatic, hearing grossly normal bilaterally, moist oral mucous membranes and oropharynx normal Mouth: oral and palatal mucosa normal Eyes EOMs intact bilaterally and conjunctivae normal Neck supple and no JVD Resp normal respiratory effort Cardio regular rhythm, S1 normal heart sound, S2 normal heart sound and no murmurs GI normal to inspection, nondistended, normoactive bowel sounds, soft to palpation, non-tender and non-distended Extremity Extremity Narrative: right knee mildly swollwn, minimal differential warmth, minimal erythema Neuro oriented x3 and no focal motor deficits Sensorium / Orientation: awake and alert Psych affect normal Results Lab / Micro Data 11/05/24 09:06 11/05/24 09:06 Labs: Laboratory Results - last 24 hr 11/05/24 09:06: WBC 11.3 H, RBC 4.04 L, Hgb 11.6 L, Hct 35.5 L, MCV 87.9, MCH 28.7, MCHC 32.7, RDW Std Deviation 43.9, RDW Coeff of Marcial 13.5, Plt Count 315, MPV 11.3, Immature Gran % (Auto) 1.200 H, Neut % (Auto) 68.3, Lymph % (Auto) 17.1 L, [place] % (Auto) 10.6 H, Eos % (Auto) 2.2, Baso % (Auto) 0.6, Absolute Neuts (auto) 7.7, Absolute Lymphs (auto) 1.92, Nucleated RBC % 0, ESR 53 H, Sodium 137, Potassium 3.7, Chloride 98, Carbon Dioxide 24.3, Anion Gap 14, BUN 44 H, Creatinine 1.03, Estim Creat Clear Calc 43.54 L, Est GFR (MDRD) Non-Af 55 L, BUN/Creatinine Ratio 42.9 H, Glucose 123 H, Calcium 9.6, C-React Prot Ext Range 113.00 H 11/05/24 09:17: Lactic Acid 1.3 11/05/24 11:17: Urine Color Yellow, Urine Clarity Clear, Urine pH 5.0, Ur Specific [place] 1.015, Urine Protein 15 H, Urine Glucose (UA) Normal, Urine Ketones Negative, Urine Occult Blood Negative, Urine Nitrite Negative, Urine Bilirubin Negative, Urine Urobilinogen Normal, Ur Leukocyte Esterase 25 H, Urine RBC 0 SEEN, Urine WBC 0 SEEN, Ur Squamous Epith Cells 0-5 SEEN, Urine Bacteria 0 SEEN, Urine Mucus 0 SEEN Micro: Microbiology 11/05/24 09:46 Mucosa - Nose SARS-CoV-2, Influenza & RSV (PCR) - Final Imaging Radiology Impression Chest X-Ray 11/05/24 08:49 IMPRESSION: No radiographic evidence of acute cardiopulmonary disease. Reading Location: [facility] Knee X-Ray 11/05/24 08:49 IMPRESSION: Hardware in position. There is a visible joint effusion with soft tissue swelling. Reading Location: [facility] KUB X-Ray 11/05/24 12:15 IMPRESSION: There is gas and stool throughout the colon with an increased stool load, consistent with constipation. Reading Location: [facility] Assessment & Plan Assessment/Plan (1) Acute dehydration: (2) Adult failure to thrive: (3) Status post knee replacement: PLAN: Plan #Debility and weakness with failure to thrive in the setting of recent right knee replacement Patient had recent right knee replacement and was discharged home. Surgery was done at [facility] last Tuesday. Says she has not been feeling well and unable to take care of herself at home so she came to the ED. Labs remarkable for elevated BUN. This is likely due to dehydration. Hydrate with IV fluids and monitor. KUB also showed constipation. Placed on Dulcolax with lactulose as needed for constipation. If this fails we will give an enema. PT OT consult. Fall precautions. #Severe constipation: As above #Recent right knee replacement: Done at [facility] as stated above last Tuesday. Right knee x-ray showed visible joint effusion or soft tissue swelling. This may be sequelae of the recent surgery. ESR and CRP also elevated. WBC mildly elevated at 11.3. Of note she was discharged on cefadroxil which she is still on. Will continue this for now. If WBC trends upwards and or she has worsening pain and erythema, will contact her orthopedic surgeon and consult orthopedic surgery here. #Hyperlipidemia: On statin #Hypertension: On atenolol?chlorthalidone. Also on amlodipine. # #DVT prophylaxis: Was placed on Lovenox 30 mg twice daily by her orthopedic surgeon. Will continue this. CODE STATUS: Full code Patient counseled extensively about different types of CODE STATUS including full code, DNR CCA and DNR CCA. Patient elects to be full code. Total [id number] time 17 minutes. Charges/Coding Visit Charges Inpatient E&M: 03486 Init Hosp L2 Procedures Hospitalists Procedures: 84926 Advncd Care Plan 30 Min
[2024-11-05] MEDS: 0.9% Normal Saline (1000mL) 1,000 ML 125 ML IV (15:15)
[2024-11-06 04:03] VITALS: BP 155/65; PULSE 90; RESP 16; TEMP 36.6; O2SAT 98
[2024-11-06] MEDS: 0.9% Normal Saline (1000mL) 1,000 ML 125 ML IV (04:22)
[2024-11-06 06:41] LABS: Hematocrit 32.6 % (37-47); Hemoglobin 10.3 g/dL (12.0-15.0); Immature Granulocytes Count 0.100 X10^3/uL (0.0-0.0); Mean Corp Hgb Conc 31.6 g/dL (32-36); Mean Corpuscular Volume 91.1 fL (81-99); Mean Platelet Vol. 10.9 fl (6.2-12.0); NRBC Flagged by Analyzer 0 % (0-5); Platelet Count 283 K/mm3 (150-450); RBC Distribution Width CV 13.7 % (11.6-14.6); RBC Distribution Width SD 46.4 fl (35.1-43.9); Red Blood Count 3.58 M/mm3 (4.2-5.4); White Blood Count 8.2 K/mm3 (4.4-11.0)
[2024-11-06 07:13] LABS: Anion Gap 11 (5-15); BUN 23 mg/dL (4-19); BUN/Creat Ratio 30.7 RATIO (10-20); Calcium,Total 8.8 mg/dL (7.6-11.0); Carbon Dioxide 22.9 mmol/L (21.0-32.0); Chloride 106 mmol/L (98-108); Estimated Creatinine Clearance 53.44 ml/min (50-250); Glucose 98 mg/dL (70-99); Potassium 3.6 mmol/L (3.3-5.1)
[2024-11-06 08:50] VITALS: BP 139/55; PULSE 91; RESP 18; TEMP 36.8; O2SAT 97
--- NOTE | 2024-11-06 12:36 | PCM.PROGNOTE ---
Subjective Subjective Patient seen and examined. She still complains of being constipated and still has not had a bowel movement. She still has some swelling of the right knee and rates the pain at 9/10. Review of systems otherwise negative. Objective Data Objective Data Vital Signs: Vital Signs Temp Pulse Resp BP Pulse Ox O2 Del Method 98.3 F 91 18 139/55 H 97 Room Air 11/06/24 08:50 11/06/24 08:50 11/06/24 08:50 11/06/24 08:50 11/06/24 08:50 11/06/24 08:50 Oxygen Delivery Method Room Air Weight: 167 lb Body Mass Index (BMI) 30.5 Intake & Output: Intake and Output for Last 24 Hours 11/04/24 11/05/24 11/06/24 23:59 23:59 23:59 Intake Total 3240 / 3640 1600 / 1600 Balance 3240 / 3640 1600 / 1600 Lab / Micro Data 11/06/24 05:32 11/06/24 05:32 Labs: Laboratory Results - last 24 hr 11/06/24 05:32: WBC 8.2, RBC 3.58 L, Hgb 10.3 L, Hct 32.6 L, MCV 91.1, MCH 28.8, MCHC 31.6 L, RDW Std Deviation 46.4 H, RDW Coeff of Marcial 13.7, Plt Count 283, MPV 10.9, Immature Gran % (Auto) 1.200 H, Neut % (Auto) 54.3, Lymph % (Auto) 28.7, [place]affee % (Auto) 10.8 H, Eos % (Auto) 4.1, Baso % (Auto) 0.9, Absolute Neuts (auto) 4.5, Absolute Lymphs (auto) 2.36, Nucleated RBC % 0, Sodium 140, Potassium 3.6, Chloride 106, Carbon Dioxide 22.9, Anion Gap 11, BUN 23 H, Creatinine 0.76, Estim Creat Clear Calc 53.44, Est GFR (MDRD) Non-Af 80, BUN/Creatinine Ratio 30.7 H, Glucose 98, Calcium 8.8 Micro: Microbiology 11/05/24 09:46 Mucosa - Nose SARS-CoV-2, Influenza & RSV (PCR) - Final Radiography Diagnostic Testing: Radiology Impression Venous Doppler Study 11/05/24 08:49 Interpretation Summary Deep veins of the right lower extremity are patent and compressible segmentally. There is no evidence of right lower extremity deep vein thrombosis. Valvular competence appears intact within the proximal deep venous system on the right . The right great saphenous vein was not visualized. Ordering Physician: Los Leiva Referring Physician: Ilan Aguillon Performed By: Osito He, RVT X-Ray 11/05/24 12:15 IMPRESSION: There is gas and stool throughout the colon with an increased stool load, consistent with constipation. Reading Location: [facility] Physical Exam Const alert, oriented x3 and no apparent distress General Appearance: cooperative HEENT normocephalic, head/scalp atraumatic, hearing grossly normal bilaterally, moist oral mucous membranes and oropharynx normal Eyes EOMs intact bilaterally and conjunctivae normal Neck supple and no JVD Resp normal respiratory effort Cardio regular rhythm, S1 normal heart sound, S2 normal heart sound and no murmurs GI normal to inspection, nondistended, normoactive bowel sounds, soft to palpation, non-tender and non-distended Extremity Extremity Narrative: right knee mildly swollen, minimal differential warmth, minimal erythema Skin Skin Narrative: as under exremities Neuro oriented x3 and no focal motor deficits Sensorium / Orientation: awake and alert Psych thought process normal and affect normal Appearance: appropriate Assessment & Plan Assessment/Plan (1) Acute dehydration: (2) Adult failure to thrive: (3) Status post knee replacement: PLAN: Plan #Debility and weakness with failure to thrive in the setting of recent right knee replacement Patient had recent right knee replacement and was discharged home. Surgery was done at [facility] last Tuesday. Says she has not been feeling well and unable to take care of herself at home so she came to the ED. Elevated BUN has improved. Was given an enema today and she had a bowel movement. PT OT consult. Fall precautions. #Severe constipation: As above did have a bowel movement today. #Recent right knee replacement: Done at [facility] as stated above last Tuesday. Right knee x-ray showed visible joint effusion or soft tissue swelling. This may be sequelae of the recent surgery. ESR and CRP also elevated. WBC is down to 8.2 from 11.3 yesterday. Still on cefadroxil. I will continue this. Knee is still swollen and has differential warmth but no erythema. Will consult orthopedic surgery for their evaluation. PT/OT on board. I spoke to Dr Lopez, who recommended that we contact the patient's surgical team at [facility] and get further instructions about what to do. I did call patient's orthopedic surgeon Dr Hicks ([phone]) at [facility]. Per the conversation, even though the CRP and ESR were elevated yesterday, wbc has trended down from 11 to 8 today. There is no redness and he felt the differential warmth and swelling are likely due to normal post op changes. He recommended continued pain control, PT./OT, applying ice packs to the knee. He recommended that she follow up with him at [facility] upon discharge. #Hyperlipidemia: On statin #Hypertension: On atenolol?chlorthalidone. Also on amlodipine. #DVT prophylaxis: Was placed on Lovenox 30 mg twice daily by her orthopedic surgeon. Will continue this. CODE STATUS: Full code Charges/Coding Visit Charges Inpatient E&M: 76671 Subs Hosp L2
[2024-11-06 14:55] LABS: CRP 63.00 mg/L (0.0-3.0)
[2024-11-06 14:59] VITALS: BP 152/62; PULSE 90; RESP 18; TEMP 36.6; O2SAT 94
[2024-11-06 15:18] VITALS: O2SAT 94
--- NOTE | 2024-11-06 15:47 | CASEMGMT ---
Noted therapy eval. DAMIAN MORIN into pt room, pt sitting up in chair. Pt states she felt she did well with therapy today. She states she would like HHC upon dc and that she is active with [facility]. Pt states she is concerned that the therapist shared with her that her pay is affected based on the patient's rating of her. Pt requested this DAMIAN MORIN cancel her services. Pt aware that she will be provided a list of other options. Asked if she wanted to wait until another agency is found, pt declined. Requested dc printer's assistant provide pt with a list of other HHC options. Pt states she lives alone, has a walker at home. Pt states family has been bringing in meals. Pt denies any further homegoing needs at this time. Sent message via [employer] to [facility] to cancel her services. DC Plan: Home with HHC, pending decision of agency and acceptance.
--- NOTE | 2024-11-06 16:04 | CASEMGMT ---
FAUSTIN Met with patient to complete FAUSTIN form. FAUSTIN form and its content were verbally explained and patient's questions were answered to the best of my ability.? Patient voiced understanding and signed FAUSTIN form.? Patient provided a copy of signed FAUSTIN form and original placed in patient's chart.? Patient had no further questions. Liliana Weston, Discharge Planning Asst
--- NOTE | 2024-11-06 16:13 | CASEMGMT ---
Discharge Planning A list of?HH providers including quality and resource use data and consistent with the patient's preferred geographic region, medical needs, and insurance network was created in [facility].? This list was provided to the patient. Liliana Weston, Discharge Planning Asst.
[2024-11-06 19:49] VITALS: BP 135/53; PULSE 78; RESP 18; TEMP 36.9; O2SAT 98
[2024-11-06] MEDS: 0.9% Saline Lock 10 ML Syringe IV (19:55)
[2024-11-06 22:33] VITALS: BP 147/56; PULSE 75; RESP 20; TEMP 37; O2SAT 97
[2024-11-07 03:47] VITALS: BP 166/64; PULSE 82; RESP 18; TEMP 36.8; O2SAT 97
[2024-11-07 06:08] LABS: Hematocrit 31.9 % (37-47); Hemoglobin 10.1 g/dL (12.0-15.0); Immature Granulocytes Count 0.090 X10^3/uL (0.0-0.0); Mean Corp Hgb Conc 31.7 g/dL (32-36); Mean Corpuscular Volume 88.1 fL (81-99); Mean Platelet Vol. 10.6 fl (6.2-12.0); NRBC Flagged by Analyzer 0 % (0-5); Platelet Count 276 K/mm3 (150-450); RBC Distribution Width CV 13.5 % (11.6-14.6); RBC Distribution Width SD 43.8 fl (35.1-43.9); Red Blood Count 3.62 M/mm3 (4.2-5.4); White Blood Count 8.6 K/mm3 (4.4-11.0)
[2024-11-07 07:07] LABS: Anion Gap 12 (5-15); BUN 14 mg/dL (4-19); BUN/Creat Ratio 22.0 RATIO (10-20); Calcium,Total 9.0 mg/dL (7.6-11.0); Carbon Dioxide 24.0 mmol/L (21.0-32.0); Chloride 103 mmol/L (98-108); Estimated Creatinine Clearance 53.44 ml/min (50-250); Glucose 98 mg/dL (70-99); Potassium 3.7 mmol/L (3.3-5.1)
[2024-11-07 08:10] VITALS: BP 157/66; PULSE 75; RESP 16; TEMP 36.7; O2SAT 96
--- NOTE | 2024-11-07 11:16 | CASEMGMT ---
Addendum entered by Liliana Weston 11/07/24 11:50: Per RN PATIENCE, [facility] has accepted. Pt updated. Liliana Weston DC Planning Asst. Addendum entered by Liliana Weston 11/07/24 11:22: [facility] declined d/t being out of service area. RN PATIENCE updated. Pts second choice was [facility]. Requested that RN PATIENCE make referral. Original Note: Discharge Planning HH referral sent to [facility]. Liliana Weston DC Planning Asst.
--- NOTE | 2024-11-07 11:21 | CASEMGMT ---
Addendum entered by Talya Cota 11/07/24 13:16: DAMIAN MORIN provided pt with insurance phone number. Pt asked DAMIAN MORIN to stay while she called. Pt called and notified Rhoda that she no longer wanted [facility]. Rhoda did a 3 way call with Fide at [facility] as they needed a reason pt wanted to be dc'd. Pt made them aware of her dissatisfaction as she relayed to DAMIAN MORIN yesterday. Fide stated that their dc date would be 11/02/24. Rhoda then called Ann at [facility] to make aware that they request auth. Pt is aware that [facility] will be in touch with her. Pt denies any further needs at this time. Addendum entered by Talya Cota 11/07/24 12:07: [id number]- [facility]. She states that once the insurance is aware that [facility] has dc'd then they can request auth and will call pt to set up appt. Then received call from Alicia requesting pt call to make aware to the insurance that she does not want [facility] any longer to expedite the process. Original Note: TC to [facility], left vm with referral for pt requesting SN and PT. Will await decision to accept.
--- NOTE | 2024-11-07 14:01 | PCM.DC.SUM ---
Providers Date of Admission: 11/05/24 Date of Discharge: 11/07/24 Primary Care Physician: Dr. Ilan Aguillon MD Consultations 11/06/24 12:35 Consult: Orthopedics Routine Consulting Provider: Jozef Lopez Reason for Consult: post op right knee swelling and differential warmth EMERGENT Consult: No MD Notified: Yes Date Notified: 11/06/24 Time Notified: 12:35 Method of Notification: Text Reason For Visit: DEBILITY, WEAKNESS, SEVERE CONSTIPATION Diagnosis Discharge Diagnosis (1) Acute dehydration: Status: Acute Code(s): E86.0 - Dehydration (2) Adult failure to thrive: Status: Acute Code(s): R62.7 - Adult failure to thrive (3) Status post knee replacement: Status: Acute Code(s): Z96.659 - Presence of unspecified artificial knee joint Plan #Debility and weakness with failure to thrive in the setting of recent right knee replacement Patient had recent right knee replacement and was discharged home. Surgery was done at [facility] last Tuesday. Says she has not been feeling well and unable to take care of herself at home so she came to the ED. Elevated BUN has improved. Was given an enema today and she had a bowel movement. PT OT consult. Fall precautions. #Severe constipation: As above did have a bowel movement today. #Recent right knee replacement: Done at [facility] as stated above last Tuesday. Right knee x-ray showed visible joint effusion or soft tissue swelling. This may be sequelae of the recent surgery. ESR and CRP also elevated. WBC is down to 8.2 from 11.3 yesterday. Still on cefadroxil. I will continue this. Knee is still swollen and has differential warmth but no erythema. Will consult orthopedic surgery for their evaluation. PT/OT on board. I spoke to Dr Lopez, who recommended that we contact the patient's surgical team at [facility] and get further instructions about what to do. I did call patient's orthopedic surgeon Dr Hicks ([phone]) at [facility]. Per the conversation, even though the CRP and ESR were elevated yesterday, wbc has trended down from 11 to 8 today. There is no redness and he felt the differential warmth and swelling are likely due to normal post op changes. He recommended continued pain control, PT./OT, applying ice packs to the knee. He recommended that she follow up with him at [facility] upon discharge. #Hyperlipidemia: On statin #Hypertension: On atenolol?chlorthalidone. Also on amlodipine. #DVT prophylaxis: Was placed on Lovenox 30 mg twice daily by her orthopedic surgeon. Will continue this. CODE STATUS: Full code Medications at Discharge Home Medications aspirin 81 mg tablet,delayed release 81 mg PO DAILY@0800 08/28/13 atenolol 50 mg-chlorthalidone 25 mg tablet 0.5 tab PO DAILY 08/28/13 lisinopril 20 mg tablet 20 mg PO DAILY 08/28/13 albuterol sulfate 90 mcg/actuation aerosol inhaler 2 puff inhalation Q6H PRN shortness of breath or wheezing #8.5 grams 03/06/20 atorvastatin 40 mg tablet 40 mg PO QHS 07/29/22 docusate sodium 100 mg capsule (Colace) 100 mg PO QDAY 07/23/24 omega 7-qqb-gnx-fish oil 1,200 mg (144 mg-216 mg) capsule (Fish Oil) 2 cap PO BID 07/23/24 prednisone 5 mg tablet 5 mg PO QDAY PRN flare 07/23/24 tramadol 50 mg tablet 50 mg PO QDAY 07/23/24 acetaminophen 650 mg tablet,extended release (8 Hour Pain Reliever) 1,300 mg PO DAILY 11/05/24 amlodipine 10 mg tablet 10 mg PO QHS 11/05/24 carboxymethylcellulose sodium 0.25 % eye drops in a dropperette (TheraTears) 1 drp EACH EYE DAILY PRN dry eye(s) 11/05/24 cefadroxil 500 mg capsule 500 mg PO Q12H 11/05/24 diphenhydramine HCl 50 mg capsule (Sleep Aid (diphenhydramine)) 50 mg PO QHS 11/05/24 enoxaparin 30 mg/0.3 mL subcutaneous syringe 30 mg subcut Q12H 11/05/24 golimumab 12.5 mg/mL intravenous solution (Simponi ARIA) 100 mg IV .COMPLEX 11/05/24 olopatadine 0.2 % eye drops (Pataday Once Daily Relief) 1 drp EACH EYE DAILY PRN itching 11/05/24 zadador 1 gtt EACH EYE DAILY PRN allergy symptoms 11/05/24 Hospital Course Operations None Procedures None Summary of Care Provided Minutes Spent on Discharge: 45 Hospital Course: MORGAN DINH, is a 78 F with a past medical history as outlined was admitted to the ED on 11/05/2024 with a complaint of debility and weakness. Patient had right knee replacement done at [facility] last Tuesday which was about 5 days prior to presentation. She was discharged home. She says she was initially able to ambulate but subsequently felt much weaker and was not able to do much or resolved. She has also not had a bowel movement in about a week. She just felt weaker and more lethargic so she was brought into the hospital. She thought she had a low-grade fever at home and said it was registered at about 98.6 Fahrenheit. She denied any nausea or vomiting. She states she still had 10/10 pain at the site of the surgery in the right knee. She denied any cough, chest pain, palpitations, nausea or vomiting or any other such symptoms. Review of systems otherwise negative. Vitals in the ED were temperature of 97.8 Fahrenheit, blood pressure 130/49, respiratory rate of 18 and she was saturating at 93% on room air. CBC showed hemoglobin of 11.6 with WBC of 11.3 and platelets of 315. ESR was 53. Chemistry showed sodium of 137 with potassium of 3.7. Bicarb was 24.3. Creatinine was 1.03. BUN was 44. CRP was 113. Urinalysis showed no evidence of UTI. Duplex of the lower extremity done was negative for any evidence of DVT and right knee x-ray showed visible joint effusion with soft tissue swelling. Abdominal KUB showed gas and stool throughout the colon with increased stool load consistent with constipation. She was admitted to be managed for debility and weakness as well as severe constipation in the setting of recent right knee replacement. ESR and CRP were elevated. She was placed on pain meds as well as given laxatives that I did not want to help with bowel movements. She ultimately did have several bowel movements during this admission. In light of elevated ESR and CRP as well as persistent pain in the knee with a swelling and mild differential warmth, I did contact her orthopedic surgeon Dr. Fournier are at [facility]. He stated that he thought these were normal postop changes and send the white cell count which was 11 on admission had even trended downwards he was not worried about an infection. He therefore recommended that patient follow-up with him on outpatient basis as scheduled upon discharge. Patient did work with therapy also and did well. She was therefore discharged home on 11/07/2024. She is to follow-up with her primary care doctor and follow-up with orthopedics as scheduled. She was continued on her prescribed antibiotics and Lovenox shots as prescribed by the orthopedic surgeon. Patient seen and examined prior to discharge. She had no active complaints and had an uneventful night. Review of systems otherwise negative. Labs and vitals reviewed. Home medication reviewed and reconciled. Physical Exam Const alert, oriented x3 and no apparent distress Constitutional Narrative: looks frail and weak General Appearance: cooperative and comfortable HEENT normocephalic, head/scalp atraumatic, hearing grossly normal bilaterally, moist oral mucous membranes and oropharynx normal Mouth: oral and palatal mucosa normal Eyes EOMs intact bilaterally and conjunctivae normal Neck supple and no JVD Resp normal respiratory effort Cardio regular rate, regular rhythm, S1 normal heart sound, S2 normal heart sound and no murmurs GI normal to inspection, nondistended, normoactive bowel sounds, soft to palpation, non-tender and non-distended Extremity Extremity Narrative: right knee mildly swollen, differential warmth has resolved, minimal tenderness Skin Skin Narrative: as under exremities Neuro oriented x3 and no focal motor deficits Sensorium / Orientation: awake and alert Psych thought process normal and affect normal Appearance: appropriate Weight / BMI Weight Weight: 167 lb Body Mass Index (BMI) 30.5 ABG / Lab / Microbiology Data 11/07/24 05:16 11/07/24 05:16 Laboratory: Laboratory Results - last 24 hr 11/07/24 05:16: WBC 8.6, RBC 3.62 L, Hgb 10.1 L, Hct 31.9 L, MCV 88.1, MCH 27.9, MCHC 31.7 L, RDW Std Deviation 43.8, RDW Coeff of Marcial 13.5, Plt Count 276, MPV 10.6, Immature Gran % (Auto) 1.000 H, Neut % (Auto) 55.4, Lymph % (Auto) 25.5, Vance % (Auto) 12.5 H, Eos % (Auto) 4.8, Baso % (Auto) 0.8, Absolute Neuts (auto) 4.8, Absolute Lymphs (auto) 2.19, Nucleated RBC % 0, Sodium 139, Potassium 3.7, Chloride 103, Carbon Dioxide 24.0, Anion Gap 12, BUN 14, Creatinine 0.62 L, Estim Creat Clear Calc 53.44, Est GFR (MDRD) Non-Af 90, BUN/Creatinine Ratio 22.0 H, Glucose 98, Calcium 9.0 Microbiology: Microbiology 11/05/24 09:43 Blood Culture (Wb) - Anticubital Right Blood Culture - Preliminary No growth in 48 hours. 11/05/24 09:17 Blood Culture (Wb) - Anticubital Left Blood Culture - Preliminary No growth in 48 hours. 11/05/24 09:46 Mucosa - Nose SARS-CoV-2, Influenza & RSV (PCR) - Final D/C Instructions Discharge Activity: Return to Normal Activity Weight Bearing Status: Weight bearing as tolerated Call your doctor if you observe: Fever of 101 or Higher, Shortness of breath, Dizziness, Swelling in the ankles and Chest pain DC O2, CPAP, BIPAP Needs Home O2 Discharge instructions: No DC home with Oxygen: No Meaningful Use Info Meaningful Use Meaningful Use Diagnoses (Choose all that apply): None applicable Discharge Plan Admission Admit Date/Time: 11/05/24 13:00 Primary Reason for Your Visit: constipation, debility and weakness Attending Provider: Bailey Patel Primary Care Provider: Ilan Aguillon Consulting Providers: Jozef Lopez Instructions Patient Instructions: ED Constipation (Adult), ED Weakness Uncertain Cause Additional Instructions / Restrictions: Follow-up with your orthopedic surgeon Dr. Hicks at [facility] as scheduled. Discharge Orders/Prescriptions Prescriptions: Continued atorvastatin 40 mg tablet 40 mg PO QHS Patient Comments: TAKE 1 TABLET BY MOUTH EVERY DAY AT BEDTIME prednisone 5 mg tablet 5 mg PO QDAY PRN (Reason: flare) tramadol 50 mg tablet 50 mg PO QDAY docusate sodium [Colace] 100 mg capsule 100 mg PO QDAY omega 1-ubu-cqh-fish oil [Fish Oil] 1,200 (144-216) mg capsule 2 cap PO BID lisinopril 20 MG tablet 20 mg PO DAILY atenolol-chlorthalidone 1 TAB tablet 0.5 tab PO DAILY aspirin 81 MG tablet 81 mg PO DAILY@0800 cefadroxil 500 mg capsule 500 mg PO Q12H enoxaparin 30 mg/0.3 mL syringe 30 mg subcut Q12H acetaminophen [8 Hour Pain Reliever] 650 mg tablet extended release 1,300 mg PO DAILY Rx Instructions: am amlodipine 10 mg tablet 10 mg PO QHS diphenhydramine HCl [Sleep Aid (diphenhydramine)] 50 mg capsule 50 mg PO QHS TheraTears 0.25 % dropperette 1 drp EACH EYE DAILY PRN (Reason: dry eye(s)) olopatadine [Pataday Once Daily Relief] 0.2 % drops 1 drp EACH EYE DAILY PRN (Reason: itching) zadador drops 1 gtt EACH EYE DAILY PRN (Reason: allergy symptoms) Simponi ARIA 12.5 mg/mL solution 100 mg IV .COMPLEX Rx Instructions: 100 mg intravenously q8w; albuterol sulfate 90 mcg/actuation HFA aerosol inhaler 2 puff INHALATION Q6H PRN (Reason: shortness of breath or wheezing) Qty: 8.5 0RF Referrals / Follow Up: Ilan Aguillon MD [Primary Care Provider, Medical] - Within 1 Week Disposition Disposition (needs filled in before D/C Order can be placed): Home Health Service Charges/Coding Visit Charges Inpatient E&M: 03098 Disch Hosp >30min
--- NOTE | 2024-11-07 15:16 | PHA.DC.MR.R ---
Pharmacy [place] Med Reconciliation Pharmacy Service has performed discharge medication reconciliation for this patient. The patient's discharge medication list was reviewed for discrepancies and discrepancies were resolved. Medications at Discharge Home Medications aspirin 81 mg tablet,delayed release 81 mg PO DAILY@0800 08/28/13 atenolol 50 mg-chlorthalidone 25 mg tablet 0.5 tab PO DAILY 08/28/13 lisinopril 20 mg tablet 20 mg PO DAILY 08/28/13 albuterol sulfate 90 mcg/actuation aerosol inhaler 2 puff inhalation Q6H PRN shortness of breath or wheezing #8.5 grams 03/06/20 atorvastatin 40 mg tablet 40 mg PO QHS 07/29/22 docusate sodium 100 mg capsule (Colace) 100 mg PO QDAY 07/23/24 omega 2-xzw-yxc-fish oil 1,200 mg (144 mg-216 mg) capsule (Fish Oil) 2 cap PO BID 07/23/24 prednisone 5 mg tablet 5 mg PO QDAY PRN flare 07/23/24 tramadol 50 mg tablet 50 mg PO QDAY 07/23/24 acetaminophen 650 mg tablet,extended release (8 Hour Pain Reliever) 1,300 mg PO DAILY 11/05/24 amlodipine 10 mg tablet 10 mg PO QHS 11/05/24 carboxymethylcellulose sodium 0.25 % eye drops in a dropperette (TheraTears) 1 drp EACH EYE DAILY PRN dry eye(s) 11/05/24 cefadroxil 500 mg capsule 500 mg PO Q12H 11/05/24 diphenhydramine HCl 50 mg capsule (Sleep Aid (diphenhydramine)) 50 mg PO QHS 11/05/24 enoxaparin 30 mg/0.3 mL subcutaneous syringe 30 mg subcut Q12H 11/05/24 golimumab 12.5 mg/mL intravenous solution (Simponi ARIA) 100 mg IV .COMPLEX 11/05/24 olopatadine 0.2 % eye drops (Pataday Once Daily Relief) 1 drp EACH EYE DAILY PRN itching 11/05/24 zadador 1 gtt EACH EYE DAILY PRN allergy symptoms 11/05/24
== END 2024-11-07 15:42 | disposition home health service (06) ==
LOC: ED 12:57 → MS3 13:18
PROVIDERS: Admitting Provider Student in an Organized Health Care Education/Training Program; Emergency Provider Emergency Medicine; PCP Family Medicine; Visit Provider Student in an Organized Health Care Education/Training Program
DX: E86.0 Dehydration (principal); M06.9 Rheumatoid arthritis, unspecified; N18.9 Chronic kidney disease, unspecified; K59.00 Constipation, unspecified; R62.7 Adult failure to thrive; Z87.891 Personal history of nicotine dependence; I12.9 Hypertensive chronic kidney disease with stage 1 through stage 4 chronic kidney disease, or unspecified chronic kidney disease; M79.89 Other specified soft tissue disorders; Z96.651 Presence of right artificial knee joint; R53.81 Other malaise; K21.9 Gastro-esophageal reflux disease without esophagitis; Z79.82 Long term (current) use of aspirin; Z79.899 Other long term (current) drug therapy; R53.1 Weakness; E78.5 Hyperlipidemia, unspecified
CPT/HCPCS: 36415; 71046; 73562; 74018; 80048; 81001; 83605; 85025; 85652; 86140; 87040; 87631; 93971; 96361; 96372; 96374; 96375; 96376; 97162; 97166; 99221; 99285; A4216; G0378; J2405

== ENCOUNTER → 2024-12-12 | Outpatient (CLI) | payer MEDICARE, SELFPAY ==
[2024-12-12 10:28] LABS: Hematocrit 38.8 % (37-47); Hemoglobin 12.3 g/dL (12.0-15.0); Immature Granulocytes Count 0.040 X10^3/uL (0.0-0.0); Mean Corp Hgb Conc 31.7 g/dL (32-36); Mean Corpuscular Volume 89.6 fL (81-99); Mean Platelet Vol. 11.4 fl (6.2-12.0); NRBC Flagged by Analyzer 0 % (0-5); Platelet Count 259 K/mm3 (150-450); RBC Distribution Width CV 14.4 % (11.6-14.6); RBC Distribution Width SD 47.2 fl (35.1-43.9); Red Blood Count 4.33 M/mm3 (4.2-5.4); White Blood Count 8.2 K/mm3 (4.4-11.0)
[2024-12-12 10:56] LABS: AST(SGOT) 14 U/L (<=31); Alanine Aminotransfer ALT/SGPT 12 U/L (<=34); Albumin, Serum 4.0 g/dL (3.4-4.8); Alkaline Phosphatase 48 U/L (35-104); Anion Gap 11 (5-15); BUN 25 mg/dL (4-19); BUN/Creat Ratio 24.9 RATIO (10-20); Calcium,Total 9.6 mg/dL (7.6-11.0); Carbon Dioxide 24.9 mmol/L (21.0-32.0); Chloride 106 mmol/L (98-108); Globulin 2.3 g/dL (2.2-4.2); Glucose 84 mg/dL (70-99); Potassium 4.2 mmol/L (3.3-5.1)
== END | disposition home or self-care (01) ==
LOC: MTLAB 08:45
PROVIDERS: PCP Family Medicine; Referring Provider Internal Medicine Rheumatology; Visit Provider Internal Medicine Rheumatology
DX: M06.09 Rheumatoid arthritis without rheumatoid factor, multiple sites (principal); M65.341 Trigger finger, right ring finger; M17.0 Bilateral primary osteoarthritis of knee
CPT/HCPCS: 36415; 80053; 85025